=== PATIENT | female | born 1945 | race Caucasian/White ===

== ENCOUNTER → 2023-03-08 | Outpatient (CLI) | payer OTHER, MEDICARE, SELFPAY ==
[2023-03-08 18:03] LABS: Absolute Neutrophil Count 4.3 X10^3/uL (2.0-7.7); Basophil# 0.06 X10^3/uL; Basophil% 0.8 % (0-1); Eosinophil# 0.14 X10^3/uL; Eosinophils% 1.9 % (0-5); Hematocrit 44.6 % (37-47); Hemoglobin 14.7 g/dL (12.0-15.0); Lymphocyte % 33.1 % (19-41); Mean Corpuscular Hgb 30.4 pg (27.0-32.0); Mean Corpuscular Volume 92.1 fL (81-99); Mean Platelet Vol. 10.6 fl (6.2-12.0); Monocyte# 0.51 X10^3/uL; Monocyte% 6.8 % (0-10); NRBC Flagged by Analyzer 0 % (0-5); Neutrophil # 4.32 X10^3/uL (2.7-7.7); Neutrophil % 57.1 % (47-70); Platelet Count 246 K/mm3 (150-450); RBC Distribution Width CV 12.4 % (11.6-14.6); Red Blood Count 4.84 M/mm3 (4.2-5.4); White Blood Count 7.6 K/mm3 (4.4-11.0)
[2023-03-08 19:07] LABS: Hepatitis C Antibody Non-Reactive (Nonreactive); Vitamin B12 > 2000 pg/mL (211-911)
[2023-03-08 19:32] LABS: ALB/GLOB Ratio 0.9 RATIO (0.9-2.4); AST(SGOT) 29 U/L (15-37); Alanine Aminotransfer ALT/SGPT 38 U/L (13-56); Albumin, Serum 3.6 g/dL (3.2-5.0); Alkaline Phosphatase 106 U/L (45-117); Anion Gap 8 (5-15); BUN 18 mg/dL (7-18); BUN/Creat Ratio 26.4 RATIO (10-20); Calcium,Total 8.8 mg/dL (8.5-10.1); Chloride 107 mmol/L (98-107); Creatinine, Serum 0.68 mg/dL (0.55-1.02); EST Glomerular Filtration Rate 89 mL/min (>60); Est Glom Filt Rate - Afr Amer 108 mL/min (>60); Globulin 3.8 g/dL (2.2-4.2); Glucose 120 mg/dL (74-106); Potassium 3.9 mmol/L (3.5-5.1); Protein, Total 7.4 g/dL (6.4-8.2); Sodium Level 138 mmol/L (136-145); Thyroid Stim Hormone (TSH) 5.53 uIU/mL (0.358-3.74)
== END | disposition home or self-care (01) ==
LOC: POLAB3 17:21
PROVIDERS: PCP Family Medicine Geriatric Medicine; Referring Provider Family Medicine Geriatric Medicine; Visit Provider Family Medicine Geriatric Medicine
DX: E11.65 Type 2 diabetes mellitus with hyperglycemia (principal); G30.9 Alzheimer's disease, unspecified
CPT/HCPCS: 36415; 80053; 82607; 82746; 84443; 85025; 86780; 86803

== ENCOUNTER → 2023-04-19 | Outpatient (CLI) | payer MEDICARE, SELFPAY ==
--- NOTE | 2023-04-19 13:25 | CT_ITS ---
INDICATION: ALZHEIMERS DIESASE EXAMINATION: CT BRAIN - CT Head or Brain W/O Contrast Injection TECHNIQUE: Multiple axial images were obtained of the head without intravenous contrast. A radiation dose optimization technique was used for this scan. IV Contrast dosage and agent: None. RADIATION DOSAGE (If Supplied By Facility): CTDIvol = ( 44.99 ) mGy, DLP = ( 779.24 ) mGycm COMPARISON: No relevant prior examinations for comparison FINDINGS: HEMISPHERES: 1. The cerebral parenchyma, ventricular system, subarachnoid spaces have normal configuration and density. There is a normal gyral pattern. There is normal lópez/white differentiation. No midline shift.. 2. Mild involutional change. Minimal chronic microvascular deep white matter changes. 3. No intraparenchymal mass, hemorrhage, or acute territorial infarct. CEREBELLUM - BRAINSTEM: The cerebellum, brainstem, basilar and suprasellar cisterns have normal appearance. No Chiari malformation. PITUITARY: Partial empty sella noted, no sellar or suprasellar masses.. CSF SPACES: Appropriate for age. No hydrocephalus. Basal cisterns are patent. VESSELS: 1. Moderate carotid vascular calcifications bilaterally. 2. No hyperdense vascular signs noted.. ORBITS AND PARANASAL SINUSES: 1. Normal appearance of the bony orbits. Normal appearance of the globes and retrobulbar soft tissues.. 2. Paranasal sinuses are clear. BONY ELEMENTS: Bony elements of the cranial vault, facial skeleton and skull base have normal appearance. SCALP AND SOFT TISSUES: Normal appearance of the soft tissues of the scalp and the visualized face OTHER: None ASPECTS Score for Acute Strokes: 10 CT/Brain/Head without Contrast IMPRESSION: 1. Mild involutional changes and minimal chronic microvascular deep white matter disease. 2. No mass, hemorrhage, or acute territorial infarct. 3. No radiographically significant sinus disease. 4. Incidental note of partial empty sella without sellar or suprasellar masses. Electronically Signed: Jitendra Ferrara MD at 2:32 EDT ,
== END | disposition home or self-care (01) ==
LOC: CT 13:18
PROVIDERS: PCP Family Medicine Geriatric Medicine; Referring Provider Family Medicine Geriatric Medicine; Visit Provider Family Medicine Geriatric Medicine
DX: G30.9 Alzheimer's disease, unspecified (principal); Z12.2 Encounter for screening for malignant neoplasm of respiratory organs
CPT/HCPCS: 70450

== ENCOUNTER → 2023-04-23 | Outpatient (CLI) | payer MEDICARE, SELFPAY ==
[2023-04-23 13:53] LABS: Thyroid Stim Hormone (TSH) 4.91 uIU/mL (0.358-3.74)
== END | disposition home or self-care (01) ==
PROVIDERS: PCP Family Medicine Geriatric Medicine; Referring Provider Family Medicine Geriatric Medicine; Visit Provider Family Medicine Geriatric Medicine
DX: E03.9 Hypothyroidism, unspecified (principal)
CPT/HCPCS: 36415; 84443

== ENCOUNTER → 2023-09-17 | Outpatient (CLI) | payer MEDICARE, SELFPAY ==
[2023-09-17 11:26] LABS: Basophil# 0.06 X10^3/uL; Basophil% 0.7 % (0-1); Eosinophil# 0.19 X10^3/uL; Eosinophils% 2.1 % (0-5); Hematocrit 44.9 % (37-47); Hemoglobin 14.5 g/dL (12.0-15.0); Mean Corp Hgb Conc 32.3 g/dL (32-36); Mean Corpuscular Hgb 29.9 pg (27.0-32.0); Mean Corpuscular Volume 92.6 fL (81-99); Mean Platelet Vol. 10.7 fl (6.2-12.0); Monocyte# 0.57 X10^3/uL; Monocyte% 6.2 % (0-10); NRBC Flagged by Analyzer 0 % (0-5); Neutrophil # 4.96 X10^3/uL (2.7-7.7); Neutrophil % 53.8 % (47-70); Platelet Count 275 K/mm3 (150-450); RBC Distribution Width CV 12.5 % (11.6-14.6); RBC Distribution Width SD 42.5 fl (35.1-43.9); Red Blood Count 4.85 M/mm3 (4.2-5.4); White Blood Count 9.2 K/mm3 (4.4-11.0)
[2023-09-17 11:40] LABS: Vitamin D,25 Hydroxy 52.6 ng/mL
[2023-09-17 12:35] LABS: AST(SGOT) 16 U/L (15-37); Alanine Aminotransfer ALT/SGPT 22 U/L (13-56); Albumin, Serum 3.7 g/dL (3.2-5.0); Alkaline Phosphatase 91 U/L (45-117); Anion Gap 6 (5-15); BUN 18 mg/dL (7-18); BUN/Creat Ratio 19.6 RATIO (10-20); Calcium,Total 8.6 mg/dL (8.5-10.1); Chloride 104 mmol/L (98-107); Creatinine, Serum 0.92 mg/dL (0.55-1.02); EST Glomerular Filtration Rate 63 mL/min (>60); Est Glom Filt Rate - Afr Amer 77 mL/min (>60); Follicle Stimulating Hormone 57.8 mIU/mL; Free T3 2.3 pg/mL (2.18-3.98); Globulin 3.8 g/dL (2.2-4.2); Glucose 111 mg/dL (74-106); Luteinizing Hormone 22.2 mIU/mL; Potassium 3.9 mmol/L (3.5-5.1); Prolactin 6.7 ng/mL; Protein, Total 7.5 g/dL (6.4-8.2); Sodium Level 137 mmol/L (136-145); T4 Free Direct 1.06 ng/dL (0.76-1.46); Thyroid Stim Hormone (TSH) 4.42 uIU/mL (0.358-3.74)
== END | disposition home or self-care (01) ==
LOC: POLAB3 10:06
PROVIDERS: Internal Medicine Endocrinology, Diabetes & Metabolism; PCP Family Medicine Geriatric Medicine; Visit Provider Family Medicine Geriatric Medicine
DX: E11.65 Type 2 diabetes mellitus with hyperglycemia (principal); R53.83 Other fatigue; E55.9 Vitamin D deficiency, unspecified
CPT/HCPCS: 36415; 80053; 82306; 82533; 83001; 83002; 84146; 84439; 84443; 84481; 85025

== ENCOUNTER → 2023-12-10 | Outpatient (CLI) | payer MEDICARE, SELFPAY ==
--- OUTSIDE RECORDS SUMMARY | 2023-12-10 11:12 | XMS RPT_ITS | CCD ---
Author Name Unknown Address [address] [facility] [facility] [address] [facility] [address] [address] [place] [address] Organization [facility] Care Team Providers Care Italian Teacher Name Role Phone ALISSON MAXWELL DO Primary Care Physician ALISSON MAXWELL DO Attending Unavailable ALISSON MAXWELL DO Primary Care Unavailable ASTER HICKS, DR RINCON Attending Unavailable ALISSON MAXWELL DO Primary Care Unavailable Allergies Allergy Classification Reported Allergen(s) Allergy Type Date of Onset Reaction(s) Facility (5 sources) Bee/Wasp/Ant venom Allergy to substance Swelling (morphologic abnormality) [facility] Work Phone: Medications Current Medications Medication Drug Class(es) Dates Sig (Normalized) Sig (Original) acetaminophen 500 mg / diphenhydrAMINE hydrochloride 25 mg oral tablet (4 sources) Histamine-1 Receptor Antagonist Start: 03-16-2019 take 1 tablet by mouth once daily at bedtime as needed for pain Tylenol PM Extra Strength oral tablet Dose = 2 tab(s), Oral, qHS, PRN as needed for pain, # 20 tab(s), 0 Refill(s) Start Date: 03/16/19 Status: Ordered aspirin 81 mg delayed release oral tablet (5 sources) Platelet Aggregation Inhibitor, Nonsteroidal Anti-inflammatory Drug Start: 03-16-2019 aspirin 81 mg oral delayed release tablet Dose : 81 mg = 1 tab(s), Oral, Daily, 0 Refill(s) Start Date: 03/16/19 Status: Ordered Problems Problem Classification Problem Date Documented Date Episodic/Chronic Diabetes mellitus without complication (7 sources) Type 2 diabetes mellitus; Translations: [Type 2 diabetes mellitus without complications] Onset: 06-26-2022 03-27-2020 Chronic Disorders of lipid metabolism (7 sources) Mixed hyperlipidemia; Translations: [Mixed hyperlipidemia] Onset: 06-26-2022 03-27-2020 Chronic Fracture of upper limb (2 sources) Closed fracture of carpal bone; Translations: [Fracture of unspecified carpal bone, unspecified wrist, initial encounter for closed fracture] Onset: 02-17-2022 Episodic Malaise and fatigue (5 sources) Fatigue 03-16-2019 Episodic Other screening for suspected conditions (not mental disorders or infectious disease) (5 sources) Viral screening status 09-10-2021 Episodic Residual codes; unclassified (5 sources) Needs influenza immunization 07-29-2020 Episodic Residual codes; unclassified (5 sources) Postmenopausal state 06-10-2021 Episodic Unclassified (11 sources) Patient encounter status 06-10-2021 Results Test Name Value Interpretation Reference Range Facil ity Vital Signs Date Time Vital Sign Value Performing Clinician Faci lity 02-17-2022 16:14-0400 Reason For Taking VItal Signs DR AMY TORRES MD [facility] 02-17-2022 14:34-0400 Body temperature 98.6 [degF] DR AMY TORRES MD [facility] 02-17-2022 14:34-0400 Diastolic blood pressure 93 mm[Hg] DR AMY TORRES MD [facility] 02-17-2022 14:34-0400 Heart rate 108 /min DR AMY TORRES MD [facility] 02-17-2022 14:34-0400 Respiratory rate 20 /min DR AMY TORRES MD [facility] 02-17-2022 14:34-0400 Systolic blood pressure 170 mm[Hg] DR AMY TORRES MD [facility] Encounters Encounter Date Encounter Type Care Provider Facility Start: 03-10-2023 End: 03-11-[address] MCKENZIE RODARTE MD Facility:B Start: 03-10-2023 End: 03-10-[address] MCKENZIE RODARTE MD [facility] Start: 06-26-2022 End: 07-01-2022 ambulatory ALISSON MAXWELL DO Facility:A Start: 03-19-2022 End: 09-08-2022 Physical therapy management NORRIS GUTIERREZ DO [facility] Start: 02-23-2022 End: 02-23-2022 Patient encounter procedure VITOR CLARK PA-C [facility] Start: 02-17-2022 End: 02-17-2022 Emergency department patient visit DR AMY TORRES MD [facility] Start: 09-30-2021 End: 09-30-2021 Patient encounter procedure ALISSON MAXWELL DO [facility] Immunizations Immunization Date Immunization Notes Care Provider Fa cili 09-10-2021 influenza, high dose seasonal, preservative-free; Translations: [Afluria PF Quadrivalent ] ALISSON MAXWELL DO [facility] 01-29-2021 SARS-CoV-2 (COVID-19 ) mRNA-1273 vaccine ALISSON MAXWELL DO [facility] 01-02-2021 SARS-CoV-2 (COVID-19 ) mRNA-1273 vaccine ALISSON MAXWELL DO [facility] Payers Date Payer Category Payer Private Health Insurance [id number] 1945 Unknown [id number] 1945 Unknown [id number] Social History Date Type Detail Facility Start: 07-24-2019 Never smoked t obacco (finding) [facility] Sex Assigned At [facility] Medical Equipment Procedure Code Equipment Code Equipment Origin al Text Equipment Identifier Dates Easy Touch Test Strip Start: 05-17-2020 See Instructions , EZ touch test strips. Use 1 strip daily. #50, # 1 packet(s), 11 Refill(s), Pharmacy: [facility], Diabetes, 157, cm, 09/10/21 8:37:00 EST, Height, 85.45, kg, 09/10/21 8:37:00 EST, Dosing Weight Start: 12-09-2021 Easy Touch Test Strip, See Instructions, test ONCE DAILY DIRECTED, # 50 strip, 11 Refill(s), Pharmacy: [facility], 167, cm, 03/27/20 7:51:00 EDT, Height, 84.4, kg, 03/27/20 7:51:00 EDT, Dosing Weight Start: 05-17-2020 See Instructions , EZ touch test strips. Use 1 strip daily. #50, # 1 packet(s), 11 Refill(s), Pharmacy: [facility], Diabetes, 157, cm, 09/10/21 8:37:00 EST, Height, 85.45, kg, 09/10/21 8:37:00 EST, Dosing Weight Start: 12-09-2021 Easy Touch Test Strip, See Instructions, test ONCE DAILY DIRECTED, # 50 strip, 11 Refill(s), Pharmacy: [facility], 167, cm, 03/27/20 7:51:00 EDT, Height, 84.4, kg, 03/27/20 7:51:00 EDT, Dosing Weight Start: 05-17-2020 See Instructions , EZ touch test strips. Use 1 strip daily. #50, # 1 packet(s), 11 Refill(s), Pharmacy: [facility], Diabetes, 157, cm, 09/10/21 8:37:00 EST, Height, 85.45, kg, 09/10/21 8:37:00 EST, Dosing Weight Start: 12-09-2021 Easy Touch Test Strip, See Instructions, test ONCE DAILY DIRECTED, # 50 strip, 11 Refill(s), Pharmacy: [facility], 167, cm, 03/27/20 7:51:00 EDT, Height, 84.4, kg, 03/27/20 7:51:00 EDT, Dosing Weight Start: 05-17-2020 See Instructions , EZ touch test strips. Use 1 strip daily. #50, # 1 packet(s), 11 Refill(s), Pharmacy: [facility], Diabetes, 157, cm, 09/10/21 8:37:00 EST, Height, 85.45, kg, 09/10/21 8:37:00 EST, Dosing Weight Start: 12-09-2021 Easy Touch Test Strip, See Instructions, test ONCE DAILY DIRECTED, # 50 strip, 11 Refill(s), Pharmacy: [facility], 167, cm, 03/27/20 7:51:00 EDT, Height, 84.4, kg, 03/27/20 7:51:00 EDT, Dosing Weight Start: 05-17-2020 Functional Status Date Assessment Result Facility 02-17-2022 Functional Status Radha Henry ngo [facility] Mental Status Date Assessment Result Facility 02-17-2022 Mental Status [facility] 02-17-2022 [facility]-17-2022 to 03-10-2023 Radiology Note Date & Type Note Facility 03-10-2023 Note ORIGINAL EXAMINATION: BONE DENSITOMETRY5/08/2023 3:08 pm TECHNIQUE: Dual energy bone densitometry lumbar spine and left hip. COMPARISON: Bone density DEXA 09/30/2021. HISTORY: Reason for Exam: Asymptomatic menopausal state. FINDINGS: Total bone mineral density of the L1-L4 is 1.367 grams per square centimeters, and T-score being 2.9, indicating that this patient has normal bone mineral density. BMD change: +3.4%. Bone mineral density of the left femoral neck is 0.690 grams per square centimeters, and T-score being -1.4, indicating that this patient has osteopenia. Total bone mineral density of the left hip is 0.897 grams per square centimeters, and T-score being -0.4, indicating that this patient has normal bone mineral density. BMD change: -1.8%. FRAX score: 10 year risk major osteoporotic fracture 15 %. 10 year risk hip fracture 2.8 %. IMPRESSION: Osteopenia. I have personally reviewed the images of this examination and agree with the resident's findings and interpretation. Interpreted by: Brian Rodriguez MD Preliminary Report By: Prabhu Campbell Electronically signed By Brian Rodriguez MD Dictated Date: 03/10/2023 3:13:18 PM Prelim Date: 03/10/2023 3:37:41 PM Sign Date: 03/10/2023 3:37:41 PM Ordering Provider: [facility] 03-10-2023 Note ORIGINAL EXAMINATION: BONE DENSITOMETRY03/10/2023 3:08 pm TECHNIQUE: Dual energy bone densitometry lumbar spine and left hip. COMPARISON: Bone density DEXA 09/30/2021. HISTORY: Reason for Exam: Asymptomatic menopausal state. FINDINGS: Total bone mineral density of the L1-L4 is 1.367 grams per square centimeters, and T-score being 2.9, indicating that this patient has normal bone mineral density. BMD change: +3.4%. Bone mineral density of the left femoral neck is 0.690 grams per square centimeters, and T-score being -1.4, indicating that this patient has osteopenia. Total bone mineral density of the left hip is 0.897 grams per square centimeters, and T-score being -0.4, indicating that this patient has normal bone mineral density. BMD change: -1.8%. FRAX score: 10 year risk major osteoporotic fracture 15 %. 10 year risk hip fracture 2.8 %. IMPRESSION: Osteopenia. I have personally reviewed the images of this examination and agree with the resident's findings and interpretation. Interpreted by: Brian Rodriguez MD Preliminary Report By: Prabhu Campbell Electronically signed By Brian Rodriguez MD Dictated Date: 03/10/2023 3:13:18 PM Prelim Date: 03/10/2023 3:37:41 PM Sign Date: 03/10/2023 3:37:41 PM Ordering Provider: [facility] 02-17-2022 Hospital Discharg e instructions Patient Education 02/17/2022 15:41:58 Fracture, Wrist, General Wrist Fracture, General You have a broken bone (fracture) in your wrist. This may be a small crack or chip in the bone. Or it may be a major break, with the broken parts pushed out of position. Wrist fractures are often treated with a splint or cast. They take about 4 to 6 weeks to heal. Severe injuries may need surgery. Home care Follow these guidelines when caring for yourself at home: Keep your arm elevated to reduce pain and swelling. When sitting or lying down keep your arm above the level of your heart. You can do this by placing your arm on a pillow that rests on your chest or on a pillow at your side. This is most important during the first 2 days (48 hours) after the injury. Put an ice pack on the injured area. Do this for 20 minutes every 1 to 2 hours the first day for pain relief. You can make an ice pack by wrapping a plastic bag of ice cubes in a thin towel. As the ice melts, be careful that the cast or splint doesn t get wet. Continue using the ice pack 3 to 4 times a day for the next 2 days. Then use the ice pack as needed to ease pain and swelling. Keep the cast or splint completely dry at all times. Bathe with your cast or splint out of the water. Protect it with a large plastic bag, rubber-banded or taped at the top end. If a fiberglass cast or splint gets wet, you can dry it with a hair designer on a cool setting. You may use acetaminophen or ibuprofen to control pain, unless another pain medicine was prescribed. If you have chronic liver or kidney disease, talk with your healthcare provider before using these medicines. Also talk with your provider if you ve had a stomach ulcer or gastrointestinal bleeding. Don t put creams, lotions, or objects under the cast. Follow-up care Follow up with your healthcare provider as advised. This is to make sure the bone is healing the way it should. If a splint was put on, it may be changed to a cast during your follow-up visit. A cast may need to be changed at 2 to 3 weeks, as the swelling goes down. If X-rays were taken, a radiologist may look at them. You will be told of any new findings that may affect your care. When to seek medical advice Call your healthcare provider right away if any of these occur: The plaster cast or splint becomes wet or soft The cast or splint cracks Bad odor from the cast or wound fluid stains the cast The fiberglass cast or splint stays wet for more than 24 hours Tightness or pain under the cast or splint gets worse Fingers become swollen, cold, blue, numb, or tingly You can t move your fingers Skin around cast becomes red, swollen, or irritated [id number] [employer]. [address] [place] [address]. All rights reserved. This information is not intended as a substitute for professional medical care. Always follow your healthcare professional's instructions. Follow Up Care 02/17/2022 14:24:34 With:VARGHESE CURTIS MD Address: [address] [place] [address] [place] [facility] [place] [address] [phone] When:2-4 days [facility] Evaluation + Plan note Future Appointments Appointment Date:12/15/2021 09:00:00 AM Scheduled Provider:ALISSON MAXWELL DO Location:[facility] Appointment Type:PC OV Future Scheduled TestsBD Bone Density DEXA Axial Skeleton 06/10/21 [facility] Evaluation + Plan note Future Appointments Appointment Date:03/19/2022 08:30:00 AM Scheduled Provider:ALISSON MAXWELL DO Location:[facility] Appointment Type:PC OV [facility] Evaluation + Plan note Future Appointments Appointment Date:03/19/2022 08:30:00 AM Scheduled Provider:ALISSON MAXWELL DO Location:[facility] Appointment Type:PC OV Diagnostic Tests PendingComplete Blood Count 02/23/22.Auto Differential 02/23/22.Neutro Absolute 02/23/22 [facility] Evaluation + Plan note Future Appointments Appointment Date:10/02/2022 08:30:00 AM Scheduled Provider:ALISSON MAXWELL DO Location:[facility] Appointment Type:PC Wellness Medicare [facility] Evaluation + Plan note Future Appointments Appointment Date:04/02/2023 08:00:00 AM Scheduled Provider:ALISSON MAXWELL DO Location:[facility] Appointment Type:PC OV [facility] Hospital course Narrative No data available for this section [facility] Hospital Discharge instructions No data available for this section [facility] Progress note No data available for this section [facility] Summary Purpose Family History No Family History Records Found Advance Directives No Advanced Directives Records Found Additional Source Comments Care Team (unrecognized sect ion and content) Personnel Name: ALISSON MAXWELL DO Address: [address] [place] [address] Personnel Name: ALISSON MAXWELL DO Address: [address] [place] [address] Care Team Personnel Name: ALISSON MAXWELL DO Position: P4 Physician - Primary Care Member Role: Primary Care Physician Address: Address: [address] [place] [address] Care Team Related Persons Name: MADELAINE YANEZ Care Team (unrecognized sect ion and content) Care Team Personnel Name: ALISSON MAXWELL Position: P4 Physician - Primary Care Member Role: Primary Care Physician Address: Address: [address] [place] [id number] Care Team Related Persons Name: MADELAINE YANEZ INFORMATION SOURCE (unrecogn ized section and content) FOR RECORDS PERTAINING TO PATIENTS WHO ARE OR HAVE BEEN ENROLLED IN A CHEMICAL DEPENDENCY/SUBSTANCEABUSE PROGRAM, SOME INFORMATION MAY BE OMITTED. This clinical summary was aggregated from multiple sources. Caution should be exercised in using it in the provision of clinical care. This summary normalizes information from multiple sources, and as a consequence, information in this document may materially change the coding, format and clinical context of patient data. In addition, data may be omitted in some cases. CLINICAL DECISIONS SHOULD BE BASED ON THE PRIMARY CLINICAL RECORDS. [facility] [employer] [facility]. provides no warranty or guarantee of the accuracy or completeness of information in this document.
[2023-12-10 11:49] LABS: Absolute Lymphocyte Count 3.21 X10^3/uL (0.83-4.51); Basophil# 0.07 X10^3/uL; Basophil% 0.8 % (0-1); Eosinophil# 0.21 X10^3/uL; Eosinophils% 2.3 % (0-5); Hematocrit 44.9 % (37-47); Hemoglobin 14.7 g/dL (12.0-15.0); Lymphocyte # 3.21 X10^3/ul (0.83-4.51); Lymphocyte % 35.4 % (19-41); Mean Corp Hgb Conc 32.7 g/dL (32-36); Mean Corpuscular Hgb 30.1 pg (27.0-32.0); Mean Platelet Vol. 10.6 fl (6.2-12.0); Monocyte# 0.53 X10^3/uL; Monocyte% 5.8 % (0-10); NRBC Flagged by Analyzer 0 % (0-5); Neutrophil # 5.02 X10^3/uL (2.7-7.7); Neutrophil % 55.4 % (47-70); Platelet Count 261 K/mm3 (150-450); RBC Distribution Width CV 12.5 % (11.6-14.6); RBC Distribution Width SD 42.1 fl (35.1-43.9); Red Blood Count 4.88 M/mm3 (4.2-5.4); White Blood Count 9.1 K/mm3 (4.4-11.0)
[2023-12-10 12:14] LABS: AST(SGOT) 18 U/L (15-37); Alanine Aminotransfer ALT/SGPT 22 U/L (13-56); Albumin, Serum 3.7 g/dL (3.2-5.0); Alkaline Phosphatase 96 U/L (45-117); Anion Gap 5 (5-15); BUN 18 mg/dL (7-18); BUN/Creat Ratio 19.3 RATIO (10-20); Calcium,Total 9.1 mg/dL (8.5-10.1); Chloride 106 mmol/L (98-107); Creatinine, Serum 0.93 mg/dL (0.55-1.02); EST Glomerular Filtration Rate 62 mL/min (>60); Est Glom Filt Rate - Afr Amer 75 mL/min (>60); Globulin 3.7 g/dL (2.2-4.2); Glucose 127 mg/dL (74-106); Potassium 4.2 mmol/L (3.5-5.1); Protein, Total 7.4 g/dL (6.4-8.2); Sodium Level 140 mmol/L (136-145); Thyroid Stim Hormone (TSH) 3.58 uIU/mL (0.358-3.74)
[2023-12-10 14:39] LABS: Vitamin D,25 Hydroxy 32.5 ng/mL
== END | disposition home or self-care (01) ==
LOC: POLAB3 10:34
PROVIDERS: PCP Family Medicine Geriatric Medicine; Visit Provider Family Medicine Geriatric Medicine
DX: E11.65 Type 2 diabetes mellitus with hyperglycemia (principal); E55.9 Vitamin D deficiency, unspecified; R53.83 Other fatigue
CPT/HCPCS: 36415; 80053; 82306; 84443; 85025

== ENCOUNTER → 2024-04-26 | Outpatient (CLI) | payer MEDICARE, SELFPAY ==
[2024-04-26 13:29] LABS: Absolute Lymphocyte Count 3.47 X10^3/uL (0.83-4.51); Absolute Neutrophil Count 5.1 X10^3/uL (2.0-7.7); Basophil# 0.08 X10^3/uL; Basophil% 0.9 % (0-1); Eosinophil# 0.22 X10^3/uL; Eosinophils% 2.4 % (0-5); Hematocrit 46.1 % (37-47); Hemoglobin 15.1 g/dL (12.0-15.0); Lymphocyte # 3.47 X10^3/ul (0.83-4.51); Lymphocyte % 37.2 % (19-41); Mean Corp Hgb Conc 32.8 g/dL (32-36); Mean Corpuscular Volume 91.5 fL (81-99); Mean Platelet Vol. 10.3 fl (6.2-12.0); Monocyte# 0.46 X10^3/uL; Monocyte% 4.9 % (0-10); NRBC Flagged by Analyzer 0 % (0-5); Neutrophil # 5.08 X10^3/uL (2.7-7.7); Neutrophil % 54.3 % (47-70); Platelet Count 255 K/mm3 (150-450); RBC Distribution Width CV 12.1 % (11.6-14.6); RBC Distribution Width SD 40.7 fl (35.1-43.9); Red Blood Count 5.04 M/mm3 (4.2-5.4); White Blood Count 9.3 K/mm3 (4.4-11.0)
[2024-04-26 14:21] LABS: Vitamin D,25 Hydroxy 34.2 ng/mL
[2024-04-26 14:32] LABS: ALB/GLOB Ratio 1.1 RATIO (0.9-2.4); AST(SGOT) 17 U/L (15-37); Alanine Aminotransfer ALT/SGPT 17 U/L (13-56); Alkaline Phosphatase 84 U/L (45-117); Anion Gap 7 (5-15); BUN 14 mg/dL (7-18); BUN/Creat Ratio 17.7 RATIO (10-20); Calcium,Total 9.8 mg/dL (8.5-10.1); Chloride 105 mmol/L (98-107); Creatinine, Serum 0.79 mg/dL (0.55-1.02); EST Glomerular Filtration Rate 75 mL/min (>60); Est Glom Filt Rate - Afr Amer 91 mL/min (>60); Globulin 3.7 g/dL (2.2-4.2); Glucose 105 mg/dL (74-106); Potassium 4.4 mmol/L (3.5-5.1); Protein, Total 7.7 g/dL (6.4-8.2); Sodium Level 139 mmol/L (136-145)
== END | disposition home or self-care (01) ==
LOC: LAB 12:39
PROVIDERS: PCP Family Medicine Geriatric Medicine; Visit Provider Family Medicine Geriatric Medicine
DX: E11.65 Type 2 diabetes mellitus with hyperglycemia (principal); R53.83 Other fatigue; E55.9 Vitamin D deficiency, unspecified
CPT/HCPCS: 36415; 80053; 82306; 84443; 85025

== ENCOUNTER → 2024-10-17 | Outpatient (CLI) | payer MEDICARE, SELFPAY ==
[2024-10-17 13:10] LABS: Absolute Lymphocyte Count 3.33 X10^3/uL (0.83-4.51); Absolute Neutrophil Count 9.1 X10^3/uL (2.0-7.7); Basophil% 0.7 % (0-1); Eosinophil# 0.13 X10^3/uL; Hematocrit 46.7 % (37-47); Hemoglobin 15.6 g/dL (12.0-15.0); Lymphocyte # 3.33 X10^3/ul (0.83-4.51); Lymphocyte % 24.4 % (19-41); Mean Corp Hgb Conc 33.4 g/dL (32-36); Mean Corpuscular Hgb 30.6 pg (27.0-32.0); Mean Corpuscular Volume 91.6 fL (81-99); Mean Platelet Vol. 9.6 fl (6.2-12.0); Monocyte# 0.92 X10^3/uL; Monocyte% 6.7 % (0-10); NRBC Flagged by Analyzer 0 % (0-5); Neutrophil # 9.12 X10^3/uL (2.7-7.7); Neutrophil % 66.8 % (47-70); Platelet Count 280 K/mm3 (150-450); RBC Distribution Width CV 12.2 % (11.6-14.6); RBC Distribution Width SD 40.9 fl (35.1-43.9); White Blood Count 13.7 K/mm3 (4.4-11.0)
[2024-10-17 14:02] LABS: ALB/GLOB Ratio 0.9 RATIO (0.9-2.4); AST(SGOT) 17 U/L (15-37); Alanine Aminotransfer ALT/SGPT 21 U/L (13-56); Albumin, Serum 3.6 g/dL (3.2-5.0); Alkaline Phosphatase 126 U/L (45-117); Anion Gap 4 (5-15); BUN 16 mg/dL (7-18); BUN/Creat Ratio 16.5 RATIO (10-20); Calcium,Total 9.2 mg/dL (8.5-10.1); Chloride 104 mmol/L (98-107); Creatinine, Serum 0.97 mg/dL (0.55-1.02); EST Glomerular Filtration Rate 59 mL/min (>60); Est Glom Filt Rate - Afr Amer 72 mL/min (>60); Glucose 219 mg/dL (74-106); Potassium 4.9 mmol/L (3.5-5.1); Protein, Total 7.6 g/dL (6.4-8.2); Sodium Level 137 mmol/L (136-145)
[2024-10-19 07:58] LABS: Vitamin D,25 Hydroxy 29.2 ng/mL
== END | disposition home or self-care (01) ==
LOC: POLAB3 12:55
PROVIDERS: PCP Family Medicine Geriatric Medicine; Visit Provider Family Medicine Geriatric Medicine
DX: E11.65 Type 2 diabetes mellitus with hyperglycemia (principal); E55.9 Vitamin D deficiency, unspecified; R53.83 Other fatigue
CPT/HCPCS: 36415; 80053; 82306; 84443; 85025

== ENCOUNTER → 2025-04-27 | Outpatient (CLI) | payer MEDICARE, SELFPAY ==
[2025-04-27 13:12] LABS: Absolute Lymphocyte Count 2.99 X10^3/uL (0.83-4.51); Absolute Neutrophil Count 5.9 X10^3/uL (2.0-7.7); Basophil# 0.07 X10^3/uL; Basophil% 0.7 % (0-1); Eosinophil# 0.08 X10^3/uL; Eosinophils% 0.8 % (0-5); Hematocrit 44.3 % (37-47); Hemoglobin 14.9 g/dL (12.0-15.0); Lymphocyte # 2.99 X10^3/ul (0.83-4.51); Lymphocyte % 30.9 % (19-41); Mean Corp Hgb Conc 33.6 g/dL (32-36); Mean Corpuscular Hgb 31.3 pg (27.0-32.0); Mean Corpuscular Volume 93.1 fL (81-99); Monocyte# 0.57 X10^3/uL; Monocyte% 5.9 % (0-10); NRBC Flagged by Analyzer 0 % (0-5); Neutrophil # 5.94 X10^3/uL (2.7-7.7); Neutrophil % 61.3 % (47-70); Platelet Count 299 K/mm3 (150-450); RBC Distribution Width CV 12.4 % (11.6-14.6); RBC Distribution Width SD 42.9 fl (35.1-43.9); Red Blood Count 4.76 M/mm3 (4.2-5.4); White Blood Count 9.7 K/mm3 (4.4-11.0)
[2025-04-27 14:43] LABS: ALB/GLOB Ratio 1.5 RATIO (0.9-2.4); AST(SGOT) 21 U/L (<=31); Alanine Aminotransfer ALT/SGPT 14 U/L (<=34); Albumin, Serum 4.3 g/dL (3.4-4.8); Alkaline Phosphatase 95 U/L (35-104); Anion Gap 11 (5-15); BUN 11 mg/dL (4-19); BUN/Creat Ratio 12.4 RATIO (10-20); Calcium,Total 9.9 mg/dL (7.6-11.0); Carbon Dioxide 26.3 mmol/L (21.0-32.0); Chloride 100 mmol/L (98-108); EST Glomerular Filtration Rate 65 (>60); Globulin 2.8 g/dL (2.2-4.2); Glucose 153 mg/dL (70-99); Protein, Total 7.1 g/dL (5.9-8.4); Sodium Level 137 mmol/L (133-145); Total Bilirubin 0.62 mg/dL (0.00-1.30); Vitamin D,25 Hydroxy 42.8 ng/mL (30-100)
== END | disposition home or self-care (01) ==
LOC: LAB 12:21
PROVIDERS: PCP Family Medicine Geriatric Medicine; Referring Provider Family Medicine Geriatric Medicine; Visit Provider Family Medicine Geriatric Medicine
DX: E11.65 Type 2 diabetes mellitus with hyperglycemia (principal); E55.9 Vitamin D deficiency, unspecified; R53.83 Other fatigue
CPT/HCPCS: 36415; 80053; 82306; 84443; 85025

== ENCOUNTER → 2025-04-30 | Outpatient (CLI) | payer MEDICARE, SELFPAY ==
[2025-04-30 11:09] LABS: Microalbumin,Random Urine < 12.0 mg/L (NO RANGE EST.); Microalbumin:Creatinine Ratio UNABLE TO CALCULATE mg/g CRE
== END | disposition home or self-care (01) ==
LOC: LABSPEC 08:50
PROVIDERS: PCP Family Medicine Geriatric Medicine; Referring Provider Family Medicine Geriatric Medicine; Visit Provider Family Medicine Geriatric Medicine
DX: E11.65 Type 2 diabetes mellitus with hyperglycemia (principal)
CPT/HCPCS: 82043; 82570

== ENCOUNTER → 2025-10-16 | Outpatient (CLI) | payer MEDICARE, SELFPAY ==
[2025-10-16 15:26] LABS: Hematocrit 44.1 % (37-47); Hemoglobin 14.8 g/dL (12.0-15.0); Immature Granulocytes Count 0.030 X10^3/uL (0.0-0.0); Mean Corp Hgb Conc 33.6 g/dL (32-36); Mean Corpuscular Volume 92.5 fL (81-99); Mean Platelet Vol. 10.4 fl (6.2-12.0); NRBC Flagged by Analyzer 0 % (0-5); Platelet Count 258 K/mm3 (150-450); RBC Distribution Width CV 12.3 % (11.6-14.6); RBC Distribution Width SD 42.2 fl (35.1-43.9); Red Blood Count 4.77 M/mm3 (4.2-5.4); White Blood Count 8.9 K/mm3 (4.4-11.0)
[2025-10-16 16:26] LABS: Vitamin D,25 Hydroxy 36.7 ng/mL (30-100)
[2025-10-16 16:29] LABS: AST(SGOT) 30 U/L (<=31); Alanine Aminotransfer ALT/SGPT 23 U/L (<=34); Albumin, Serum 4.2 g/dL (3.4-4.8); Alkaline Phosphatase 126 U/L (35-104); Anion Gap 9 (5-15); BUN 15 mg/dL (4-19); BUN/Creat Ratio 14.0 RATIO (10-20); Calcium,Total 9.5 mg/dL (7.6-11.0); Carbon Dioxide 28.2 mmol/L (21.0-32.0); Chloride 102 mmol/L (98-108); Globulin 2.9 g/dL (2.2-4.2); Glucose 159 mg/dL (70-99); Potassium 4.0 mmol/L (3.3-5.1)
--- OUTSIDE RECORDS SUMMARY | 2025-10-16 20:22 | XMS RPT_ITS | CCD ---
Author Organization [facility] Care Team Providers [employer] Supervisor Name Role Phone ALISSON MAXWELL DO Primary Care Physician ALISSON MAXWELL DO Attending Unavailable ALISSON MAXWELL DO Primary Care Unavailable ASTER HICKS, DR RINCON Attending Unavailable ALISSON MAXWELL DO Primary Care Unavailable Aster HICKS, Dr. Mayito Sánchez Primary Care Provider Aster HICKS, Dr. Mayito Sánchez Attending Provider [phone] Aster HICKS, Dr. Mayito Sánchez Referring Provider [phone] Mayito Rodarte Chi Primary Care Unavailable Aster Mayito Chi Attending Unavailable Aster Mayito Chi Referring Unavailable Aster, Mayito Chi Primary Care Unavailable Aster Mayito Chi Attending Unavailable Aster Mayito Chi Primary Care Unavailable AsterMayito Chi Attending Unavailable Aster Mayito Chi Referring Unavailable Allergies Allergy Classification Reported Allergen(s) Allergy Type Date of Onset Reaction(s) Facility (5 sources) Bee/Wasp/Ant venom Allergy to substance Swelling (morphologic abnormality) [facility] Work Phone: Medications Current Medications Medication Drug [...] 0 Refill(s) Start Date: 03/16/19 Status: Ordered Start: 03-16-2019 aspirin 81 mg oral delayed release tablet Dose : 81 mg = 1 tab(s), Oral, Daily, 0 Refill(s) Start Date: 03/16/19 Status: Ordered atorvastatin 40 mg oral tablet (5 sources) HMG-CoA Reductase Inhibitor Start: 06-26-2022 End: 03-31-2023 atorvastatin 40 mg oral tablet Dose : 40 mg = 1 tab(s), Oral, qDay, # 90 tab(s), 1 Refill(s), Pharmacy: [facility], 157, cm, 10/02/22 8:25:00 EST, Height, kg, 10/02/22 8:25:00 EST, Dosing Weight Start Date: 10/02/22 Stop Date: 03/31/23 Status: Ordered Start: 09-10-2021 End: 03-09-2022 atorvastatin 40 mg oral tabl et Dose : 40 mg = 1 tab(s), Oral, qDay, # 90 tab(s), 1 Refill(s), Pharmacy: [facility], 157, cm, 09/10/21 8:37:00 EST, Height, kg, 09/10/21 8:37:00 EST, Dosing Weight Start Date: 09/10/21 Stop Date: 03/09/22 Status: Ordered Centrum Silver oral tablet (5 sources) Start: 03-16-2019 take 1 tablet by mouth once daily Centrum Silver oral tablet Dose = 1 tab(s), Oral, qDay, # 90 tab(s), 0 Refill(s) Start Date: 03/16/19 Status: Ordered cetirizine hydrochloride 10 mg oral tablet (4 sources) Histamine-1 Receptor Antagonist Start: 03-16-2019 Zyrtec 10 mg oral tablet Dose : 10 mg = 1 tab(s), Oral, qDay, # 30 tab(s), 0 Refill(s) Start Date: 03/16/19 Status: Ordered cinnamon bark 500 mg oral capsule (4 sources) Start: 03-16-2019 cinnamon 500 m g oral capsule Dose : 1,000 mg = 2 cap(s), Oral, BID, # 100 cap(s), 0 Refill(s) Start Date: 03/16/19 Status: Ordered DME MISCellaneous (1 source) Start: 06-10-2021 DME MISCellane ous See Instructions, EZ touch test strips. Use 1 strip daily. #50, # 1 packet(s), 11 Refill(s), Pharmacy: [facility], 157, cm, 06/10/21 8:45:00 EDT, Height, 85.9, kg, 06/10/21 8:45:00 EDT, Dosing Weight Start Date: 06/10/21 Status: Ordered galantamine 8 mg oral tablet (3 sources) Start: 08-13-2023 take 1 tablet by mouth once daily at dinner Galantamine 8 mg tablet Active 16 mg PO DAILY August 13, 2023 12:00am administer with AM and PM meals Start: 08-13-2023 take 16 mg by mouth once daily at dinner Galantamine Active 16 MG PO DAILY August 12, 2023 11:00pm administer with AM and PM meals glipiZIDE 5 mg oral tablet (5 sources) Sulfonylurea Start: 06-26-2022 End: 03-31-2023 glipiZIDE 5 mg oral tablet Dose : 5 mg = 1 tab(s), Oral, qDay, # 90 tab(s), 1 Refill(s), Pharmacy: [facility], 157, cm, 10/02/22 8:25:00 EST, Height, kg, 10/02/22 8:25:00 EST, Dosing Weight Start Date: 10/02/22 Stop Date: 03/31/23 Status: Ordered Start: 09-10-2021 End: 03-09-2022 glipiZIDE 5 mg oral tablet D ose : 5 mg = 1 tab(s), Oral, qDay, # 90 tab(s), 1 Refill(s), Pharmacy: [facility], 157, cm, 09/10/21 8:37:00 EST, Height, kg, 09/10/21 8:37:00 EST, Dosing Weight Start Date: 09/10/21 Stop Date: 03/09/22 Status: Ordered levothyroxine sodium 0.05 mg oral capsule (3 sources) l-Thyroxine Start: 08-13-2023 take 1 capsule by mouth once daily Levothyroxine 50 mcg capsule Active 50 ug PO DAILY August 13, 2023 12:00am memantine hydrochloride 10 mg oral tablet (3 sources) Z-rwmzun-T-asparta te Receptor Antagonist Start: 08-13-2023 take 1 tablet by mouth twice daily Memantine 10 mg tablet Active 10 mg PO TWICE A DAY August 13, 2023 12:00am naproxen sodium 220 mg oral tablet (5 sources) Nonsteroidal Anti-inflammatory Drug Start: 07-24-2019 Aleve 220 mg oral tablet Dose : 440 mg = 2 tab(s), Oral, q8h, PRN as needed for pain, # 60 tab(s), 0 Refill(s) Start Date: 07/24/19 Status: Ordered traMADol hydrochloride 50 mg oral tablet (1 source) Opioid Agonist Start: 02-17-2022 End: 02-20-2022 traMADol 50 mg oral tablet Dose : 50 mg = 1 tab(s), Oral, q6hr, X 3 day(s), # 12 tab(s), 0 Refill(s), 02/20/22 15:41:00 EDT, Wrist fracture, 86.81 Start Date: 02/17/22 Stop Date: 02/20/22 Status: Ordered turmeric extract 500 mg oral capsule (5 sources) Start: 03-16-2019 turmeric 500 mg oral capsule Dose : 500 mg = 1 cap(s), Oral, Daily, 0 Refill(s) Start Date: 03/16/19 Status: Ordered Tylenol PM Extra Strength oral tablet (1 source) Start: 03-16-2019 take 1 tablet by mouth once daily at bedtime as needed for pain Tylenol PM Extra Strength oral tablet Dose = 2 tab(s), Oral, qHS, PRN as needed for pain, # 20 tab(s), 0 Refill(s) Start Date: 03/16/19 Status: Ordered Vitamin B-12 1000 mcg sublingual lozenge (4 sources) Start: 03-16-2019 take 1 dose under the tongue once daily Vitamin B-12 1000 mcg sublingual lozenge Dose : 1,000 mcg = 1 lozenge(s), Sublingual, qDay, # 50 lozenge(s), 0 Refill(s) Start Date: 03/16/19 Status: Ordered vitamin b12 1 mg oral lozenge (1 source) Vitamin B12 Start: 03-16-2019 take 1 dose under the tongue once daily Vitamin B-12 1000 mcg sublingual lozenge Dose : 1,000 mcg = 1 lozenge(s), Sublingual, qDay, # 50 lozenge(s), 0 Refill(s) Start Date: 03/16/19 Status: Ordered Problems Problem Classification Problem Date Documented Date Episodic/Chronic Delirium, dementia, and amnestic and other cognitive disorders (3 sources) Dementia; Translations: [Unspecified dementia without behavioral disturbance] 08-13-2023 Chronic Diabetes mellitus with complications (1 source) Type 2 diabetes mellitus with hyperglycemia; Translations: [Type 2 diabetes mellitus with hyperglycemia] Onset: 05-02-2025 Chronic Diabetes mellitus without complication (10 sources) Type 2 diabetes mellitus; Translations: [Type [...] fatigue (5 sources) Fatigue 03-16-2019 Episodic Other endocrine disorders (3 sources) Empty sella syndrome; Translations: [Other disorders of pituitary gland] 08-13-2023 Chronic Other screening for suspected conditions (not mental disorders or infectious disease) (5 sources) Viral screening status 09-10-2021 Episodic Residual codes; unclassified (5 sources) Needs influenza immunization 07-29-2020 Episodic Residual codes; unclassified (5 sources) Postmenopausal state 06-10-2021 Episodic Thyroid disorders (3 sources) Acquired hypothyroidism; Translations: [Hypothyroidism, unspecified] 08-13-2023 Chronic Unclassified (11 sources) Patient encounter status 06-10-2021 Results Test Name Value Interpretation Reference Range Facility Microalb:Creat Ratio,Random URon 04-30-2025 Creatinine [Mass/Vol] 86.50 mg/dL Normal 28.00-217.00 [facility] Comment on above: Performed By: #### L 502.0250 #### [facility] [address] [place], [place], [id number] MALB:CREAT UNABLE TO CALCULATE Normal [facility] Comment on above: Performed By: #### L 502.0250 #### [facility] [address] [place], [place], [id number] MICROALBUMIN,UR < 12.0 Normal NO RANGE EST. [facility] Comment on above: Performed By: #### L 502.0250 #### [facility] [address] [place], [place], [id number] Microalbumin/creat ratio urO rdered By: Mayito Rodarte on 04-30-2025 Urine microalbumin/creatinine ratio measurement UNABLE TO CALCULATE mg/g CRE [facility] Random urine creatinine param urement (mass/volume)Ordered By: Mayito Rodarte on 04-30-2025 Creatinine Unsp time (U) [Mass/Vol] 86.50 mg/dL 28.00-217.00 [facility] Urine albumin measurement wi detection limit of 20 mg/L or less (mass/volume)Ordered By: Mayito Rodarte on 04-30-2025 Albumin DL <= 20 mg/L (U) [Mass/Vol] < 12.0 mg/L NO RANGE EST. [facility] Absolute lymphocyte countOrd ered By: Mayito Rodarte on 04-27-2025 Lymphocytes Auto (Unsp spec) [#/Vol] 2.99 10*3/uL 0.83-4.51 [facility] Absolute neutrophil countOrd ered By: Mayito Rodarte on 04-27-2025 Neutrophils (Bld) [#/Vol] 5.9 10*3/uL 2.0-7.7 [facility] Anion gap in Serum or Plasma Ordered By: Mayito Rodarte on 04-27-2025 Anion gap [Moles/Vol] 11 mmol/L 5-15 [facility] Automated lymphocyte count a s percentage of total leukocytesOrdered By: Mayito Rodarte on 04-27-2025 Lymphocytes/100 WBC Auto (Unsp spec) 30.9 % 19-41 [facility] BUN/creatinine ratioOrdered By: Mayito Rodarte on 04-27-2025 Urea nitrogen/Creatinine [Mass ratio] 12.4 mg/mg 10-20 [facility] Basophil percentageOrdered B y: Mayito Rodarte on 04-27-2025 Basophils/100 WBC (Bld) 0.7 % 0-1 [facility] Bilirubin, totalOrdered By: Mayito Rodarte on 04-27-2025 Bilirubin [Mass/Vol] 0.62 mg/dL 0.00-1.30 [facility] CBC W/Diff, Automatedon 04-02 Absolute Lymph 2.99 X10 3/uL Normal 0.83-4.51 [facility] Comment on above: Performed By: #### L 100.0100, L501.9520, L506.1001, L500.4050 #### [facility] [address] [place], [address] Absolute Neut 5.9 X10 3/uL Normal 2.0-7.7 [facility] Comment on above: Performed By: #### L 100.0100, L501.9520, L506.1001, L500.4050 #### [facility] [address] [place], [address] Basophils/100 WBC (Bld) 0.7 % Normal 0-1 [facility] Comment on above: Performed By: #### L 100.0100, L501.9520, L506.1001, L500.4050 #### [facility] [address] [place], [address] Eosinophils/100 WBC (Bld) 0.8 % Normal 0-5 [facility] Comment on above: Performed By: #### L 100.0100, L501.9520, L506.1001, L500.4050 #### [facility] [address] [place], [address] Erythrocyte distribution width (RBC) [Ratio] 12.4 % Normal 11.6-14.6 [facility] Comment on above: Performed By: #### L 100.0100, L501.9520, L506.1001, L500.4050 #### [facility] [address] [place], [address] Hematocrit (Bld) [Volume fraction] 44.3 % Normal 37-47 [facility] Comment on above: Performed By: #### L 100.0100, L501.9520, L506.1001, L500.4050 #### [facility] [address] [place], [address] Hemoglobin (Bld) [Mass/Vol] 14.9 g/dL Normal 12.0-15.0 [facility] Comment on above: Performed By: #### L 100.0100, L501.9520, L506.1001, L500.4050 #### [facility] [address] [place], [address] IG% 0.400 Normal 0.0-0.9 [facility] Comment on above: Result Comment: IG% - Immature Granulocytes (promyelocytes, myelocytes and metamyelocytes) > 1% indicates that a LEFT SHIFT is Present. Performed By: #### L 100.0100, L501.9520, L506.1001, L500.4050 #### [facility] [address] [place], [address] Lymphocytes/100 WBC (Bld) 30.9 % Normal 19-41 [facility] Comment on above: Performed By: #### L 100.0100, L501.9520, L506.1001, L500.4050 #### [facility] [address] [place], [address] MCH (RBC) [Entitic mass] 31.3 pg Normal 27.0-32.0 [facility] Comment on above: Performed By: #### L 100.0100, L501.9520, L506.1001, L500.4050 #### [facility] [address] [place], [address] MCHC (RBC) [Mass/Vol] 33.6 g/dL Normal 32-36 [facility] Comment on above: Performed By: #### L 100.0100, L501.9520, L506.1001, L500.4050 #### [facility] [address] [place], [address] MCV (RBC) [Entitic vol] 93.1 fL Normal 81-99 [facility] Comment on above: Performed By: #### L 100.0100, L501.9520, L506.1001, L500.4050 #### [facility] [address] [place], [address] Monocytes/100 WBC (Bld) 5.9 % Normal 0-10 [facility] Comment on above: Performed By: #### L 100.0100, L501.9520, L506.1001, L500.4050 #### [facility] [address] [place], [address] Neutrophils/100 WBC (Bld) 61.3 % Normal 47-70 [facility] Comment on above: Performed By: #### L 100.0100, L501.9520, L506.1001, L500.4050 #### [facility] [address] [place], [address] Nucleated RBC (Bld) [#/Vol] 0 10*3/uL Normal 0-5 [facility] Comment on above: Performed By: #### L 100.0100, L501.9520, L506.1001, L500.4050 #### [facility] [address] [place], [address] Platelet mean volume (Bld) [Entitic vol] 10.0 fL Normal 6.2-12.0 [facility] Comment on above: Performed By: #### L 100.0100, L501.9520, L506.1001, L500.4050 #### [facility] [address] [place], [address] Platelets (Bld) [#/Vol] 299 10*3/uL Normal 150-450 [facility] Comment on above: Performed By: #### L 100.0100, L501.9520, L506.1001, L500.4050 #### [facility] [address] [place], [address] RBC (Bld) [#/Vol] 4.76 10*6/uL Normal 4.2-5.4 [facility] Comment on above: Performed By: #### L 100.0100, L501.9520, L506.1001, L500.4050 #### [facility] [address] [place], [address] RDW SD 42.9 fl Normal 35.1-43.9 [facility] Comment on above: Performed By: #### L 100.0100, L501.9520, L506.1001, L500.4050 #### [facility] [address] [place], [address] WBC (Bld) [#/Vol] 9.7 10*3/uL Normal 4.4-11.0 [facility] Comment on above: Performed By: #### L 100.0100, L501.9520, L506.1001, L500.4050 #### [facility] [address] [place], [address] Carbon dioxide, total [Moles /volume] in Central venous bloodOrdered By: Mayito Rodarte on 04-27-2025 CO2 [Moles/Vol] 26.3 mmol/L 21.0-32.0 [facility] Chloride assayOrdered By: Gagandeep Rodarte on 04-27-2025 Chloride [Moles/Vol] 100 mmol/L 98-108 [facility] Comprehensive Metabolic Prof ilon 04-27-2025 Albumin [Mass/Vol] 4.3 g/dL Normal 3.4-4.8 [facility] Comment on above: Performed By: #### L 100.0100, L501.9520, L506.1001, L500.4050 #### [facility] [address] [place], [address] Albumin/Globulin [Mass ratio] 1.5 {ratio} Normal 0.9-2.4 [facility] Comment on above: Performed By: #### L 100.0100, L501.9520, L506.1001, L500.4050 #### [facility] [address] [place], [address] ALK PHOS 95 U/L Normal 35-104 [facility] Comment on above: Performed By: #### L 100.0100, L501.9520, L506.1001, L500.4050 #### [facility] [address] [place], [address] ALT [Catalytic activity/Vol] 14 U/L Normal <=34 [facility] Comment on above: Performed By: #### L 100.0100, L501.9520, L506.1001, L500.4050 #### [facility] [address] [place], [address] AST [Catalytic activity/Vol] 21 U/L Normal <=31 [facility] Comment on above: Performed By: #### L 100.0100, L501.9520, L506.1001, L500.4050 #### [facility] [address] [place], [address] Bilirubin [Mass/Vol] 0.62 mg/dL Normal 0.00-1.30 [facility] Comment on above: Performed By: #### L 100.0100, L501.9520, L506.1001, L500.4050 #### [facility] [address] [place], [address] BUN/CRE 12.4 RATIO Normal 10-20 [facility] Comment on above: Performed By: #### L 100.0100, L501.9520, L506.1001, L500.4050 #### [facility] [address] [place], [address] Calcium [Mass/Vol] 9.9 mg/dL Normal 7.6-11.0 [facility] Comment on above: Performed By: #### L 100.0100, L501.9520, L506.1001, L500.4050 #### [facility] [address] [place], [address] Chloride [Moles/Vol] 100 mmol/L Normal 98-108 [facility] Comment on above: Performed By: #### L 100.0100, L501.9520, L506.1001, L500.4050 #### [facility] [address] [place], [address] CO2 [Moles/Vol] 26.3 mmol/L Normal 21.0-32.0 [facility] Comment on above: Performed By: #### L 100.0100, L501.9520, L506.1001, L500.4050 #### [facility] [address] [place], [address] Creatinine [Mass/Vol] 0.90 mg/dL Normal 0.70-1.20 [facility] Comment on above: Performed By: #### L 100.0100, L501.9520, L506.1001, L500.4050 #### [facility] [address] [place], [address] GAP 11 Normal 5-15 [facility] Comment on above: Performed By: #### L 100.0100, L501.9520, L506.1001, L500.4050 #### [facility] [address] [place], [address] GFR/1.73 sq M.predicted among non-blacks MDRD (S/P/Bld) [Vol rate/Area] 65 mL/min/{1.73_m2} Normal >60 [facility] Comment on above: Result Comment: mL/m in/1.73m2 CKD-EPI Creatinine Equation (2020) Performed By: #### L 100.0100, L501.9520, L506.1001, L500.4050 #### [facility] [address] [place], [address] Globulin (S) [Mass/Vol] 2.8 g/dL Normal 2.2-4.2 [facility] Comment on above: Performed By: #### L 100.0100, L501.9520, L506.1001, L500.4050 #### [facility] [address] [place], [address] Glucose [Mass/Vol] 153 mg/dL High 70-99 [facility] Comment on above: Performed By: #### L 100.0100, L501.9520, L506.1001, L500.4050 #### [facility] [address] [place], [address] Potassium [Moles/Vol] 4.0 mmol/L Normal 3.3-5.1 [facility] Comment on above: Performed By: #### L 100.0100, L501.9520, L506.1001, L500.4050 #### [facility] [address] [place], [address] Sodium [Moles/Vol] 137 mmol/L Normal 133-145 [facility] Comment on above: Performed By: #### L 100.0100, L501.9520, L506.1001, L500.4050 #### [facility] [address] [place], [address] T PROT 7.1 g/dL Normal 5.9-8.4 [facility] Comment on above: Performed By: #### L 100.0100, L501.9520, L506.1001, L500.4050 #### [facility] [address] [place], [address] Urea nitrogen [Mass/Vol] 11 mg/dL Normal 4-19 [facility] Comment on above: Performed By: #### L 100.0100, L501.9520, L506.1001, L500.4050 #### [facility] [address] [place], [address] Eosinophil percentageOrdered By: Mayito Rodarte on 04-27-2025 Eosinophils/100 WBC (Bld) 0.8 % 0-5 [facility] Erythrocyte distribution wid th ratioOrdered By: Mayito Rodarte on 04-27-2025 Erythrocyte distribution width (RBC) [Ratio] 12.4 % 11.6-14.6 [facility] Erythrocyte distribution wid th standard deviationOrdered By: Mayito Rodarte on 04-27-2025 Erythrocyte distribution width (RBC) [Ratio] 42.9 fl 35.1-43.9 [facility] Glomerular filtration rate ( GFR) estimation/1.73 sq m using serum, plasma, or whole bOrdered By: Mayito Rodarte on 04-27-2025 GFR/1.73 sq M.predicted among non-blacks MDRD (S/P/Bld) [Vol rate/Area] 65 mL/min/{1.73_m2} >60 [facility] Comment on above: mL/min/1.73m2 CKD-EP I Creatinine Equation (2020) Hematocrit Auto (Bld) [Volum e fraction]Ordered By: Mayito Rodarte on 04-27-2025 Hematocrit (Bld) [Volume fraction] 44.3 % 37-47 [facility] Hemoglobin measurementOrdere d By: Mayito Rodarte 04-27-2025 Hemoglobin (Bld) [Mass/Vol] 14.9 g/dL 12.0-15.0 [facility] Immature granulocytes/100 WB C Auto (Bld)Ordered By: Mayito Rodarte on 04-27-2025 Immature granulocytes/100 WBC (Bld) 0.400 % 0.0-0.9 [facility] Comment on above: IG% - Immature Granu locytes (promyelocytes, myelocytes and metamyelocytes) > 1% indicates that a LEFT SHIFT is Present. Laboratory - Chemistry and C hemistry - challengeOrdered By: Mayito Rodarte on 04-27-2025 AST [Catalytic activity/Vol] 21 U/L <32 [facility] MCV (mean corpuscular volume ) determinationOrdered By: Mayito Rodarte on 04-27-2025 MCV (RBC) [Entitic vol] 93.1 fL 81-99 [facility] Mean corpuscular hemoglobin (MCH) determinationOrdered By: Mayito Rodarte 04-27-2025 MCH (RBC) [Entitic mass] 31.3 pg 27.0-32.0 [facility] Mean corpuscular hemoglobin concentration (MCHC) determinationOrdered By: Mayito Rodarte 04-27-2025 MCHC (RBC) [Mass/Vol] 33.6 g/dL 32-36 [facility] Mean platelet volume determi nationOrdered By: Mayito Rodarte 04-27-2025 Platelet mean volume (Bld) [Entitic vol] 10.0 fL 6.2-12.0 [facility] Monocyte percentageOrdered B y: Mayito Rodarte on 04-27-2025 Monocytes/100 WBC (Bld) 5.9 % 0-10 [facility] Neutrophil percentageOrdered By: Mayito Rodarte on 04-27-2025 Neutrophils/100 WBC (Bld) 61.3 % 47-70 [facility] Nucleated red blood cell per centageOrdered By: Mayito Rodarte 04-27-2025 Nucleated RBC/100 WBC (Bld) [Ratio] 0 % 0-5 [facility] Platelet countOrdered By: Gagandeep Rodarte on 04-27-2025 Platelets (Bld) [#/Vol] 299 10*3/uL 150-450 [facility] Potassium measurement (mass/ volume)Ordered By: Mayito Rodarte on 04-27-2025 Potassium (Unsp spec) [Mass/Vol] 4.0 mmol/L 3.3-5.1 [facility] RBC Auto (Bld) [#/Vol]Ordere d By: Mayito Rodarte on 04-27-2025 RBC (Bld) [#/Vol] 4.76 10*6/uL 4.2-5.4 [facility] Serum creatinine measurement (mass/volume)Ordered By: Mayito Rodarte 04-27-2025 Creatinine [Mass/Vol] 0.90 mg/dL 0.70-1.20 [facility] Serum globulin measurementOr dered By: Mayito Rodarte 04-27-2025 Globulin (S) [Mass/Vol] 2.8 g/dL 2.2-4.2 [facility] Serum glucose measurement (m ass/volume)Ordered By: Mayito Rodarte 04-27-2025 Glucose [Mass/Vol] 153 mg/dL High 70-99 [facility] Serum or plasma alanine chavez otransferase (ALT) measurementOrdered By: Mayito Rodarte 04-27-2025 ALT [Catalytic activity/Vol] 14 U/L <35 [facility] Serum or plasma albumin param urement (mass/volume)Ordered By: Mayito Rodarte 04-27-2025 Albumin [Mass/Vol] 4.3 g/dL 3.4-4.8 [facility] Serum or plasma albumin/glob ulin mass ratioOrdered By: Mayito Rodarte 04-27-2025 Albumin/Globulin [Mass ratio] 1.5 {ratio} 0.9-2.4 [facility] Serum or plasma alkaline cony sphatase measurementOrdered By: Mayito Rodarte 04-27-2025 ALP [Catalytic activity/Vol] 95 U/L 35-104 [facility] Serum or plasma calcium param urement (mass/volume)Ordered By: Mayito Rodarte 04-27-2025 Calcium [Mass/Vol] 9.9 mg/dL 7.6-11.0 [facility] Serum or plasma urea nitroge n measurement (mass/volume)Ordered By: Mayito Rodarte 04-27-2025 Urea nitrogen [Mass/Vol] 11 mg/dL 4-19 [facility] Sodium levelOrdered By: Mayito Rodarte 04-27-2025 Sodium [Moles/Vol] 137 mmol/L 133-145 [facility] TSH DL <= 0.005 mIU/L QnOrde red By: Mayito Rodarte on 04-27-2025 TSH Qn 1.590 uIU/mL 0.300-4.200 [facility] Thyroid Stim Hormone (TSH)on 04-27-2025 TSH 1.590 uIU/mL Normal 0.300-4.200 [facility] Comment on above: Performed By: #### L 100.0100, L501.9520, L506.1001, L500.4050 #### [facility] [address] [place], [address] Total proteinOrdered By: Mayito Rodarte on 04-27-2025 Protein [Mass/Vol] 7.1 g/dL 5.9-8.4 [facility] Vitamin D,25 Hydroxyon 04-27 Vitamin D 25-OH 42.8 ng/mL Normal 30-100 [facility] Comment on above: Result Comment: Kenia min D Status Deficiency: <20 ng/mL (50nmol/L) Insufficiency: 20-30 ng/mL (50-75 nmol/L) Sufficiency: 30-100 ng/mL (75-250 nmol/L) Toxicity: >100 ng/mL (>250 nmol/L) Performed By: #### L 100.0100, L501.9520, L506.1001, L500.4050 #### [facility] [address] [place], [address] White blood cell (WBC) count Ordered By: Mayito Rodarte on 04-27-2025 WBC (Bld) [#/Vol] 9.7 10*3/uL 4.4-11.0 [facility] Vitamin D,25 Hydroxyon 10-19 Vitamin D 25-OH 29.2 ng/mL Normal [facility] Comment on above: Result Comment: Kenia min D 25(OH) Status Range Deficiency <20 ng/mL (50nmol/L) Insufficiency 20 - 30 ng/mL (50 - 75 nmol/L) Sufficiency 30 - 100 ng/mL (75 - 250 nmol/L) Toxicity >100 ng/mL (>250 nmol/L) Performed By: #### L 500.4050, L501.9520, L506.1000, L100.0100 #### [facility] [address] [place], [address] CBC W/Diff, Automatedon 10-01 Absolute Lymph 3.33 X10 3/uL Normal 0.83-4.51 [facility] Comment on above: Performed By: #### L 500.4050, L501.9520, L506.1000, L100.0100 #### [facility] [address] [place], [address] Absolute Neut 9.1 X10 3/uL High 2.0-7.7 [facility] Comment on above: Performed By: #### L 500.4050, L501.9520, L506.1000, L100.0100 #### [facility] [address] [place], [address] Basophils/100 WBC (Bld) 0.7 % Normal 0-1 [facility] Comment on above: Performed By: #### L 500.4050, L501.9520, L506.1000, L100.0100 #### [facility] [address] [place], [address] Eosinophils/100 WBC (Bld) 1.0 % Normal 0-5 [facility] Comment on above: Performed By: #### L 500.4050, L501.9520, L506.1000, L100.0100 #### [facility] [address] [place], [address] Erythrocyte distribution width (RBC) [Ratio] 12.2 % Normal 11.6-14.6 [facility] Comment on above: Performed By: #### L 500.4050, L501.9520, L506.1000, L100.0100 #### [facility] [address] [place], [address] Hematocrit (Bld) [Volume fraction] 46.7 % Normal 37-47 [facility] Comment on above: Performed By: #### L 500.4050, L501.9520, L506.1000, L100.0100 #### [facility] [address] [place], [address] Hemoglobin (Bld) [Mass/Vol] 15.6 g/dL High 12.0-15.0 [facility] Comment on above: Performed By: #### L 500.4050, L501.9520, L506.1000, L100.0100 #### [facility] [address] [place], [address] IG% 0.400 Normal 0.0-0.9 [facility] Comment on above: Result Comment: IG% - Immature Granulocytes (promyelocytes, myelocytes and metamyelocytes) > 1% indicates that a LEFT SHIFT is Present. Performed By: #### L 500.4050, L501.9520, L506.1000, L100.0100 #### [facility] [address] [place], [address] Lymphocytes/100 WBC (Bld) 24.4 % Normal 19-41 [facility] Comment on above: Performed By: #### L 500.4050, L501.9520, L506.1000, L100.0100 #### [facility] [address] [place], [address] MCH (RBC) [Entitic mass] 30.6 pg Normal 27.0-32.0 [facility] Comment on above: Performed By: #### L 500.4050, L501.9520, L506.1000, L100.0100 #### [facility] [address] [place], [address] MCHC (RBC) [Mass/Vol] 33.4 g/dL Normal 32-36 [facility] Comment on above: Performed By: #### L 500.4050, L501.9520, L506.1000, L100.0100 #### [facility] [address] [place], [address] MCV (RBC) [Entitic vol] 91.6 fL Normal 81-99 [facility] Comment on above: Performed By: #### L 500.4050, [id number], L506.1000, L100.0100 #### [facility] [address] [place], [address] Monocytes/100 WBC (Bld) 6.7 % Normal 0-10 [facility] Comment on above: Performed By: #### L 500.4050, [id number], L506.1000, L100.0100 #### [facility] [address] [place], [address] Neutrophils/100 WBC (Bld) 66.8 % Normal 47-70 [facility] Comment on above: Performed By: #### L 500.4050, [id number], L506.1000, L100.0100 #### [facility] [address] [place], [address] Nucleated RBC (Bld) [#/Vol] 0 10*3/uL Normal 0-5 [facility] Comment on above: Performed By: #### L 500.4050, L501.9520, L506.1000, L100.0100 #### [facility] [address] [place], [address] Platelet mean volume (Bld) [Entitic vol] 9.6 fL Normal 6.2-12.0 [facility] Comment on above: Performed By: #### L 500.4050, L501.9520, L506.1000, L100.0100 #### [facility] [address] [place], [address] Platelets (Bld) [#/Vol] 280 10*3/uL Normal 150-450 [facility] Comment on above: Performed By: #### L 500.4050, L501.9520, L506.1000, L100.0100 #### [facility] [address] [place], [address] RBC (Bld) [#/Vol] 5.10 10*6/uL Normal 4.2-5.4 [facility] Comment on above: Performed By: #### L 500.4050, [id number], L506.1000, L100.0100 #### [facility] [address] [place], [address] RDW SD 40.9 fl Normal 35.1-43.9 [facility] Comment on above: Performed By: #### L 500.4050, [id number], L506.1000, L100.0100 #### [facility] [address] [place], [address] WBC (Bld) [#/Vol] 13.7 10*3/uL High 4.4-11.0 [facility] Comment on above: Performed By: #### L 500.4050, [id number], L506.1000, L100.0100 #### [facility] [address] [place], [address] [facility] 10-17-2024 Albumin [Mass/Vol] 3.6 g/dL Normal 3.2-5.0 [facility] Comment on above: Performed By: #### L 500.4050, [id number], L506.1000, L100.0100 #### [facility] [address] [place], [address] Albumin/Globulin [Mass ratio] 0.9 {ratio} Normal 0.9-2.4 [facility] Comment on above: Performed By: #### L 500.4050, [id number], L506.1000, L100.0100 #### [facility] [address] [place], [address] ALK P 126 U/L High 45-117 [facility] Comment on above: Performed By: #### L 500.4050, [id number], L506.1000, L100.0100 #### [facility] [address] [place], [address] ALT [Catalytic activity/Vol] 21 U/L Normal 13-56 [facility] Comment on above: Performed By: #### L 500.4050, [id number], L506.1000, L100.0100 #### [facility] [address] [place], [address] AST [Catalytic activity/Vol] 17 U/L Normal 15-37 [facility] Comment on above: Performed By: #### L 500.4050, [id number], L506.1000, L100.0100 #### [facility] [address] [place], [address] Bilirubin [Mass/Vol] 0.40 mg/dL Normal 0.20-1.00 [facility] Comment on above: Result Comment: For patients on eltrombopag therapy, use of Dimension Mertzon TBIL is not recommended. Performed By: #### L 500.4050, L501.9520, L506.1000, L100.0100 #### [facility] [address] [place], [address] BUN/CRE 16.5 RATIO Normal 10-20 [facility] Comment on above: Performed By: #### L 500.4050, [id number], L506.1000, L100.0100 #### [facility] [address] [place], [address] CA,Total 9.2 mg/dL Normal 8.5-10.1 [facility] Comment on above: Performed By: #### L 500.4050, [id number], L506.1000, L100.0100 #### [facility] [address] [place], [address] Chloride [Moles/Vol] 104 mmol/L Normal 98-107 [facility] Comment on above: Performed By: #### L 500.4050, [id number], L506.1000, L100.0100 #### [facility] [address] [place], [address] CO2 [Moles/Vol] 29.0 mmol/L Normal 21.0-32.0 [facility] Comment on above: Performed By: #### L 500.4050, [id number], L506.1000, L100.0100 #### [facility] [address] [place], [address] Creatinine [Mass/Vol] 0.97 mg/dL Normal 0.55-1.02 [facility] Comment on above: Result Comment: The validity of the calculated GFR GFRAA in patients over 70 years has not been determined. Clinical correlation is essential. Performed By: #### L 500.4050, L501.9520, L506.1000, L100.0100 #### [facility] [address] [place], [address] EST GFR - AA 72 mL/min Normal >60 [facility] Comment on above: Result Comment: Afri can Serbian GFR Calc Performed By: #### L 500.4050, [id number], L506.1000, L100.0100 #### [facility] [address] [place], [address] GAP 4 Low 5-15 [facility] Comment on above: Performed By: #### L 500.4050, [id number], L506.1000, L100.0100 #### [facility] [address] [place], [address] GFR/1.73 sq M.predicted among non-blacks MDRD (S/P/Bld) [Vol rate/Area] 59 mL/min/{1.73_m2} Low >60 [facility] Comment on above: Result Comment: Non- GFR Calc Performed By: #### L 500.4050, L501.9520, L506.1000, L100.0100 #### [facility] [address] [place], [address] Globulin (S) [Mass/Vol] 4.0 g/dL Normal 2.2-4.2 [facility] Comment on above: Performed By: #### L 500.4050, L501.9520, L506.1000, L100.0100 #### [facility] [address] [place], [address] Glucose [Mass/Vol] 219 mg/dL High 74-106 [facility] Comment on above: Result Comment: Gluc ose result greater than or equal to 200 mg/dL suggests DIABETES MELLITUS per A.D.A. criteria. Performed By: #### L 500.4050, L501.9520, L506.1000, L100.0100 #### [facility] [address] [place], [address] Potassium [Moles/Vol] 4.9 mmol/L Normal 3.5-5.1 [facility] Comment on above: Performed By: #### L 500.4050, [id number], L506.1000, L100.0100 #### [facility] [address] [place], [address] Sodium [Moles/Vol] 137 mmol/L Normal 136-145 [facility] Comment on above: Performed By: #### L 500.4050, [id number], L506.1000, L100.0100 #### [facility] [address] [place], [address] T PROT 7.6 g/dL Normal 6.4-8.2 [facility] Comment on above: Performed By: #### L 500.4050, [id number], L506.1000, L100.0100 #### [facility] [address] [place], [address] Urea nitrogen [Mass/Vol] 16 mg/dL Normal 7-18 [facility] Comment on above: Performed By: #### L 500.4050, [id number], L506.1000, L100.0100 #### [facility] [address] [place], [address] Thyroid Stim Hormone (TSH)on 10-17-2024 TSH 1.750 uIU/mL Normal 0.358-3.740 [facility] Comment on above: Performed By: #### L 500.4050, L501.9520, L506.1000, L100.0100 #### [facility] [address] [place], [address] Absolute lymphocyte countOrd ered By: Mayito Rodarte on 12-10-2023 Lymphocytes Auto (Unsp spec) [#/Vol] 3.21 10*3/uL 0.83-4.51 [facility] Automated lymphocyte count a s percentage of total leukocytesOrdered By: Mayito Rodarte on 12-10-2023 Lymphocytes/100 WBC Auto (Unsp spec) 35.4 % 19-41 [facility] Basophil percentageOrdered B y: Mayito Rodarte on 12-10-2023 Basophils/100 WBC (Bld) 0.8 % 0-1 [facility] Bilirubin [Mass/Vol] 0.50 mg/dL 0.20-1.00 [facility] Comment on above: For patients on eltr ombopag therapy, use of Dimension Mertzon TBIL is not recommended. Chloride [Moles/Vol] 106 mmol/L 98-107 [facility] Eosinophils/100 WBC (Bld) 2.3 % 0-5 [facility] Glucose [Mass/Vol] 127 mg/dL 74-106 [facility] Comment on above: Fasting Glucose resu lt greater than or equal to 126 mg/dL suggests DIABETES MELLITUS per A.D.A. criteria. Hemoglobin (Bld) [Mass/Vol] 14.7 g/dL 12.0-15.0 [facility] Monocytes/100 WBC (Bld) 5.8 % 0-10 [facility] Neutrophils (Bld) [#/Vol] 5.0 10*3/uL 2.0-7.7 [facility] Neutrophils/100 WBC (Bld) 55.4 % 47-70 [facility] Potassium [Moles/Vol] 4.2 mmol/L 3.5-5.1 [facility] Protein [Mass/Vol] 7.4 g/dL 6.4-8.2 [facility] Sodium [Moles/Vol] 140 mmol/L 136-145 [facility] WBC (Bld) [#/Vol] 9.1 10*3/uL 4.4-11.0 [facility] Determination of erythrocyte mean corpuscular volume (MCV)Ordered By: Mayito Rodarte on 12-10-2023 MCV (RBC) [Entitic vol] 92.0 fL 81-99 [facility] Erythrocyte distribution wid th ratioOrdered By: [facility]23 Erythrocyte distribution width (RBC) [Ratio] 12.5 % 11.6-14.6 [facility] Erythrocyte distribution wid th standard deviationOrdered By: Mayito Rodarte on 12-10-2023 Erythrocyte distribution width (RBC) [Entitic vol] 42.1 fL 35.1-43.9 [facility] Hematocrit Auto (Bld) [Volum e fraction]Or[facility]: [facility]-2023 Hematocrit (Bld) [Volume fraction] 44.9 % 37-47 [facility] Immature granulocytes/100 WB C Auto (Bld)Ordered By: Mayito Rodarte on 12-10-2023 Immature granulocytes/100 WBC (Bld) 0.300 % 0.0-0.9 [facility] Comment on above: IG% - Immature Granu locytes (promyelocytes, myelocytes and metamyelocytes) > 1% indicates that a LEFT SHIFT is Present. Laboratory - Chemistry and C hemistry - challengeOrdered By: Mayito Rodarte on 12-10-2023 Albumin/Globulin [Mass ratio] 1.0 {ratio} 0.9-2.4 [facility] ALP [Catalytic activity/Vol] 96 U/L 45-117 [facility] ALT [Catalytic activity/Vol] 22 U/L 13-56 [facility] CO2 [Moles/Vol] 29.0 mmol/L 21.0-32.0 [facility] Globulin (S) [Mass/Vol] 3.7 g/dL 2.2-4.2 [facility] Urea nitrogen/Creatinine [Mass ratio] 19.3 mg/mg 10-20 [facility] - Hematology and Cell countsOrdered By: Mayito Rodarte on 12-10-2023 MCH (RBC) [Entitic mass] 30.1 pg 27.0-32.0 [facility] MCHC (RBC) [Mass/Vol] 32.7 g/dL 32-36 [facility] Nucleated RBC/100 WBC (Bld) [Ratio] 0 % 0-5 [facility] Platelet mean volume (Bld) [Entitic vol] 10.6 fL 6.2-12.0 [facility] Platelets (Bld) [#/Vol] 261 10*3/uL 150-450 [facility] No Panel InformationOrdered By: Mayito Rodarte on 12-10-2023 Estimated GFR (MDRD) Amer 75 mL/min >60 [facility] Comment on above: GFR Calc Estimated GFR (MDRD) Non-Af Amer 62 mL/min >60 [facility] Comment on above: Non- GFR Calc Vitamin D 25-Hydroxy 32.5 ng/mL [facility] Comment on above: Vitamin D 25(OH) Sta tus Range Deficiency <20 ng/mL (50nmol/L) Insufficiency 20 - 30 ng/mL (50 - 75 nmol/L) Sufficiency 30 - 100 ng/mL (75 - 250 nmol/L) Toxicity >100 ng/mL (>250 nmol/L) RBC Auto (Bld) [#/Vol]Ordere d By: Mayito Rodarte on 12-10-2023 RBC (Bld) [#/Vol] 4.88 10*6/uL 4.2-5.4 [facility] Serum or plasma calcium param urement (mass/volume)Ordered By: Mayito Rodarte on 12-10-2023 Calcium [Mass/Vol] 9.1 mg/dL 8.5-10.1 [facility] Serum or plasma creatinine m easurement (mass/volume)Ordered By: Mayito Rodarte on 12-10-2023 Creatinine [Mass/Vol] 0.93 mg/dL 0.55-1.02 [facility] Comment on above: The validity of the calculated GFR & GFRAA in patients over 70 years has not been determined. Clinical correlation is essential. Serum or plasma thyroid stim ulating hormone (TSH) measurement (units/volume)Ordered By: Mayito Rodarte on 12-10-2023 TSH Qn 3.58 uIU/mL 0.358-3.74 [facility] Serum or plasma urea nitroge n measurement (mass/volume)Ordered By: Mayito Rodarte on 12-10-2023 Urea nitrogen [Mass/Vol] 18 mg/dL 7-18 [facility] Thin prep Papanicolaou smear with manual screeningOrdered By: Mayito Rodarte on 12-10-2023 Thin prep Papanicolaou smear with manual screening 3.7 g/dL 3.2-5.0 [facility] Thin prep Papanicolaou smear with manual screening 18 U/L 15-37 [facility] Thin prep Papanicolaou smear with manual screening 5 5-15 [facility] Absolute lymphocyte countOrd ered By: Albert Odonnell on 09-17-2023 Lymphocytes Auto (Unsp spec) [#/Vol] 3.40 10*3/uL 0.83-4.51 [facility] Basophil percentageOrdered B y: Albert Odonnell on 09-17-2023 Basophils/100 WBC (Bld) 0.7 % 0-1 [facility] Bilirubin [Mass/Vol] 0.40 mg/dL 0.20-1.00 [facility] Comment on above: For patients on eltr ombopag therapy, use of Dimension Mertzon TBIL is not recommended. Chloride [Moles/Vol] 104 mmol/L 98-107 [facility] Eosinophils/100 WBC (Bld) 2.1 % 0-5 [facility] Glucose [Mass/Vol] 111 mg/dL 74-106 [facility] Comment on above: Fasting Glucose resu lt from 100 to 125 mg/dL suggests IMPAIRED HOMEOSTASIS per A.D.A. criteria. Neutrophils (Bld) [#/Vol] 5.0 10*3/uL 2.0-7.7 [facility] Neutrophils/100 WBC (Bld) 53.8 % 47-70 [facility] Potassium [Moles/Vol] 3.9 mmol/L 3.5-5.1 [facility] Protein [Mass/Vol] 7.5 g/dL 6.4-8.2 [facility] Sodium [Moles/Vol] 137 mmol/L 136-145 [facility] WBC (Bld) [#/Vol] 9.2 10*3/uL 4.4-11.0 [facility] Blood erythrocytes count (nu mber/volume)Ordered By: Albert Odonnell on 09-17-2023 RBC (Bld) [#/Vol] 4.85 10*6/uL 4.2-5.4 [facility] Blood hemoglobin measurement (mass/volume)Ordered By: Albert Odonnell on 09-17-2023 Hemoglobin (Bld) [Mass/Vol] 14.5 g/dL 12.0-15.0 [facility] Blood lymphocytes/100 leukoc ytesOrdered By: Albert Odonnell on 09-17-2023 Lymphocytes/100 WBC (Bld) 37.0 % 19-41 [facility] Blood monocytes/100 leukocyt esOrdered By: Albert Odonnell on 09-17-2023 Monocytes/100 WBC (Bld) 6.2 % 0-10 [facility] Blood platelet mean volumeOr dered By: Albert Odonnell on 09-17-2023 Platelet mean volume (Bld) [Entitic vol] 10.7 fL 6.2-12.0 [facility] Determination of erythrocyte mean corpuscular volume (MCV)Ordered By: Albert Odonnell on 09-17-2023 MCV (RBC) [Entitic vol] 92.6 fL 81-99 [facility] Hematocrit Auto (Bld) [Volum e fraction]Ordered By: Albert Odonnell on 09-17-2023 Hematocrit (Bld) [Volume fraction] 44.9 % 37-47 [facility] - Chemistry and C hemistry - challengeOrdered By: Albert Odonnell on 09-17-2023 ALP [Catalytic activity/Vol] 91 U/L 45-117 [facility] ALT [Catalytic activity/Vol] 22 U/L 13-56 [facility] CO2 [Moles/Vol] 27.0 mmol/L 21.0-32.0 [facility] Free T4 [Mass/Vol] 1.06 ng/dL 0.76-1.46 [facility] Globulin (S) [Mass/Vol] 3.8 g/dL 2.2-4.2 [facility] Urea nitrogen/Creatinine [Mass ratio] 19.6 mg/mg 10-20 [facility] - Hematology and Cell countsOrdered By: Albert Odonnell on 09-17-2023 Erythrocyte distribution width (RBC) [Entitic vol] 42.5 fL 35.1-43.9 [facility] Erythrocyte distribution width (RBC) [Ratio] 12.5 % 11.6-14.6 [facility] Immature granulocytes/100 WBC (Bld) 0.200 % 0.0-0.9 [facility] Comment on above: IG% - Immature Granu locytes (promyelocytes, myelocytes and metamyelocytes) > 1% indicates that a LEFT SHIFT is Present. MCH (RBC) [Entitic mass] 29.9 pg 27.0-32.0 [facility] Nucleated RBC/100 WBC (Bld) [Ratio] 0 % 0-5 [facility] MCHC Auto (RBC) [Mass/Vol]Or dered By: Albert Odonnell on 09-17-2023 MCHC (RBC) [Mass/Vol] 32.3 g/dL 32-36 [facility] No Panel InformationOrdered By: Albert Odonnell on 09-17-2023 Estimated GFR (MDRD) Amer 77 mL/min >60 [facility] Comment on above: GFR Calc Estimated GFR (MDRD) Non-Af Amer 63 mL/min >60 [facility] Comment on above: Non- GFR Calc Follicle Stimulating Hormone 57.8 mIU/mL [facility] Comment on above: NORMAL REFERENCE RAN GES FEMALE FOLLICULAR 2.3 - 12.6 mIU/mL MID-CYCLE PEAK 5.2 - 17.5 mIU/mL LUTEAL 1.7 - 12.9 mIU/mL POST-MENOPAUSAL ON MHT 5.9 - 72.8 mIU/mL NOT ON MHT 12.7 - 132.2 mlU/mL MALE 0.7 - 10.8 mIU/mL Free Triiodothyronine (T3) pg/dL 2.3 pg/mL 2.18-3.98 [facility] Luteinizing Hormone 22.2 mIU/mL [facility] Comment on above: NORMAL REFERENCE RAN GES FEMALE FOLLICULAR 1.9 - 26.2 mIU/mL MID-CYCLE PEAK 22.8 - 76.1 mIU/mL LUTEAL 0.6 - 16.6 mIU/mL POST-MENOPAUSAL ON MHT 1.1 - 52.4 mIU/mL NOT ON MHT 8.6 - 61.8 mIU/mL MALE 1.2 - 10.6 mIU/mL Thyroid Stimulating Hormone (TSH) 4.42 uIU/mL 0.358-3.74 [facility] Vitamin D 25-Hydroxy 52.6 ng/mL [facility] Comment on above: Vitamin D 25(OH) Sta tus Range Deficiency <20 ng/mL (50nmol/L) Insufficiency 20 - 30 ng/mL (50 - 75 nmol/L) Sufficiency 30 - 100 ng/mL (75 - 250 nmol/L) Toxicity >100 ng/mL (>250 nmol/L) Platelets bldOrdered By: Geraldo Odonnell on 09-17-2023 Platelets (Bld) [#/Vol] 275 10*3/uL 150-450 [facility] Serum or plasma albumin param urement (mass/volume)Ordered By: Albert Odonnell on 09-17-2023 Albumin [Mass/Vol] 3.7 g/dL 3.2-5.0 [facility] Serum or plasma albumin/glob ulin mass ratioOrdered By: Albert Odonnell on 09-17-2023 Albumin/Globulin [Mass ratio] 1.0 {ratio} 0.9-2.4 [facility] Serum or plasma calcium param urement (mass/volume)Ordered By: Albert Odonnell on 09-17-2023 Calcium [Mass/Vol] 8.6 mg/dL 8.5-10.1 [facility] Serum or plasma cortisol manjit surement (mass/volume)Ordered By: Albert Odonnell on 09-17-2023 Cortisol [Mass/Vol] 6.10 ug/dL 3.44-22.45 [facility] Comment on above: Adult (AM) 5.27 - 22 .45 ug/dL Adult (PM) 3.44 - 16.76 ug/dLPlease note revised CORTISOL reference range effective 2019. Serum or plasma creatinine m easurement (mass/volume)Ordered By: Albert Odonnell on 09-17-2023 Creatinine [Mass/Vol] 0.92 mg/dL 0.55-1.02 [facility] Comment on above: The validity of the calculated GFR & GFRAA in patients over 70 years has not been determined. Clinical correlation is essential. Serum or plasma prolactin me asurement (mass/volume)Ordered By: Albert Odonnell on 09-17-2023 Prolactin [Mass/Vol] 6.7 ng/mL [facility] Comment on above: NORMAL REFERENCE RAN GES FEMALE NON- 2.2 - 30.3 ng/mL 8.1 - 347.6 ng/mL POST-MENOPAUSAL 0.7 - 31.5 ng/mL MALE 2.5 - 17.4 ng/mL Serum or plasma urea nitroge n measurement (mass/volume)Ordered By: Albert Odonnell on 09-17-2023 Urea nitrogen [Mass/Vol] 18 mg/dL 7-18 [facility] Thin prep Papanicolaou smear with manual screeningOrdered By: Albert Odonnell on 09-17-2023 Thin prep Papanicolaou smear with manual screening 16 U/L 15-37 [facility] Thin prep Papanicolaou smear with manual screening 6 5-15 [facility] No Panel InformationOrdered By: Mayito Rodarte on 04-23-2023 Thyroid Stimulating Hormone (TSH) 4.91 uIU/mL 0.358-3.74 [facility] BD BONE DENSITY DEXA AXIAL S Irene 03-10-2023 BD BONE DENSITY DEXA AXIAL SKELETON ORIGINAL EXAMINATION: BONE DENSITOMETRY 3 3:08 pm TECHNIQUE: Dual energy bone densitometry [...] Sign Date: 03/10/2023 3:37:41 PM Ordering Provider: MCKENZIE [facility] ([place]) Absolute lymphocyte countOrd ered By: Dr. Rodarte on 03-08-2023 Lymphocytes Auto (Unsp spec) [#/Vol] 2.50 10*3/uL 0.83-4.51 [facility] Basophil percentageOrdered B y: Dr. Rodarte on 03-08-2023 Basophils/100 WBC (Bld) 0.8 % 0-1 [facility] Bilirubin [Mass/Vol] 0.30 mg/dL 0.20-1.00 [facility] Comment on above: For patients on eltr ombopag therapy, use of Dimension Mertzon TBIL is not recommended. Chloride [Moles/Vol] 107 mmol/L 98-107 [facility] Eosinophils/100 WBC (Bld) 1.9 % 0-5 [facility] Glucose [Mass/Vol] 120 mg/dL 74-106 [facility] Comment on above: Fasting Glucose resu lt from 100 to 125 mg/dL suggests IMPAIRED HOMEOSTASIS per A.D.A. criteria. Neutrophils (Bld) [#/Vol] 4.3 10*3/uL 2.0-7.7 [facility] Neutrophils/100 WBC (Bld) 57.1 % 47-70 [facility] Potassium [Moles/Vol] 3.9 mmol/L 3.5-5.1 [facility] Protein [Mass/Vol] 7.4 g/dL 6.4-8.2 [facility] Sodium [Moles/Vol] 138 mmol/L 136-145 [facility] WBC (Bld) [#/Vol] 7.6 10*3/uL 4.4-11.0 [facility] Blood erythrocytes count (nu mber/volume)Ordered By: Dr. Rodarte on 03-08-2023 RBC (Bld) [#/Vol] 4.84 10*6/uL 4.2-5.4 [facility] Blood hemoglobin measurement (mass/volume)Ordered By: Dr. Rodarte on 03-08-2023 Hemoglobin (Bld) [Mass/Vol] 14.7 g/dL 12.0-15.0 [facility] Blood lymphocytes/100 leukoc ytesOrdered By: Dr. Rodarte on 03-08-2023 Lymphocytes/100 WBC (Bld) 33.1 % 19-41 [facility] Blood monocytes/100 leukocyt esOrdered By: Dr. Rodarte on 03-08-2023 Monocytes/100 WBC (Bld) 6.8 % 0-10 [facility] Blood platelet mean volumeOr dered By: Dr. Rodarte on 03-08-2023 Platelet mean volume (Bld) [Entitic vol] 10.6 fL 6.2-12.0 [facility] Determination of erythrocyte mean corpuscular volume (MCV)Ordered By: Dr. Rodarte on 03-08-2023 MCV (RBC) [Entitic vol] 92.1 fL 81-99 [facility] Hematocrit Auto (Bld) [Volum e fraction]Ordered By: Dr. Rodarte on 03-08-2023 Hematocrit (Bld) [Volume fraction] 44.6 % 37-47 [facility] Laboratory - Chemistry and C hemistry - challengeOrdered By: Dr. Rodarte on 03-08-2023 ALP [Catalytic activity/Vol] 106 U/L 45-117 [facility] ALT [Catalytic activity/Vol] 38 U/L 13-56 [facility] CO2 [Moles/Vol] 23.0 mmol/L 21.0-32.0 [facility] Globulin (S) [Mass/Vol] 3.8 g/dL 2.2-4.2 [facility] Urea nitrogen/Creatinine [Mass ratio] 26.4 mg/mg 10-20 [facility] Laboratory - Hematology and Cell countsOrdered By: Dr. Rodarte on 03-08-2023 Erythrocyte distribution width (RBC) [Entitic vol] 42.0 fL 35.1-43.9 [facility] Erythrocyte distribution width (RBC) [Ratio] 12.4 % 11.6-14.6 [facility] Immature granulocytes/100 WBC (Bld) 0.300 % 0.0-0.9 [facility] Comment on above: IG% - Immature Granu locytes (promyelocytes, myelocytes and metamyelocytes) > 1% indicates that a LEFT SHIFT is Present. MCH (RBC) [Entitic mass] 30.4 pg 27.0-32.0 [facility] Nucleated RBC/100 WBC (Bld) [Ratio] 0 % 0-5 [facility] MCHC Auto (RBC) [Mass/Vol]Or dered By: Dr. Rodarte on 03-08-2023 MCHC (RBC) [Mass/Vol] 33.0 g/dL 32-36 [facility] No Panel InformationOrdered By: Dr. Rodarte on 03-08-2023 Estimated GFR (MDRD) Amer 108 mL/min >60 [facility] Comment on above: GFR Calc Estimated GFR (MDRD) Non-Af Amer 89 mL/min >60 [facility] Comment on above: Non- GFR Calc Hepatitis C Antibody Non-Reactive Nonreactive [facility] Comment on above: Non Reactive: < 0.8 Equivocal: >/= 0.8 to < 1.0 Reactive: >/= 1.0The CDC recommends that a reactive/equivocal HCV antibody result be followed up by the HCV Nucleic Acid Amplificationtest (360126) Thyroid Stimulating Hormone (TSH) 5.53 uIU/mL 0.358-3.74 [facility] Vitamin B12 Level > 2000 pg/mL 211-911 [facility] Platelets bldOrdered By: Dr. Rodarte on 03-08-2023 Platelets (Bld) [#/Vol] 246 10*3/uL 150-450 [facility] Serum or plasma albumin param urement (mass/volume)Ordered By: Dr. Rodarte on 03-08-2023 Albumin [Mass/Vol] 3.6 g/dL 3.2-5.0 [facility] Serum or plasma albumin/glob ulin mass ratioOrdered By: Dr. Rodarte on 03-08-2023 Albumin/Globulin [Mass ratio] 0.9 {ratio} 0.9-2.4 [facility] Serum or plasma calcium param urement (mass/volume)Ordered By: Dr. Rodarte on 03-08-2023 Calcium [Mass/Vol] 8.8 mg/dL 8.5-10.1 [facility] Serum or plasma creatinine m easurement (mass/volume)Ordered By: Dr. Rodarte on 03-08-2023 Creatinine [Mass/Vol] 0.68 mg/dL 0.55-1.02 [facility] Comment on above: The validity of the calculated GFR & GFRAA in patients over 70 years has not been determined. Clinical correlation is essential. Serum or plasma folate measu rement (mass/volume)Ordered By: Dr. Rodarte on 03-08-2023 Folate [Mass/Vol] 27.80 ng/mL 3.1-55.4 [facility] Serum or plasma urea nitroge n measurement (mass/volume)Ordered By: Dr. Rodarte on 03-08-2023 Urea nitrogen [Mass/Vol] 18 mg/dL 7-18 [facility] Thin prep Papanicolaou smear with manual screeningOrdered By: Dr. Rodarte on 03-08-2023 Thin prep Papanicolaou smear with manual screening 29 U/L 15-37 [facility] Thin prep Papanicolaou smear with manual screening 8 5-15 [facility] .Auto Diffon 06-26-2022 Basophil, Absolute 0.1 10 3/mcL Normal 0.0-0.3 [facility] ([place]) Comment on above: Performed By: #### L IPID, CMP, A1C, GFR #### [address] [address] Basophils/100 WBC (Bld) 0.6 % Normal 0.0-2.5 [facility] ([place]) Comment on above: Performed By: #### L IPID, CMP, A1C, GFR #### [address] [address] Eosinophil, Absolute 0.1 10 3/mcL Normal 0.0-0.7 [facility] ([place]) Comment on above: Performed By: #### L IPID, CMP, A1C, GFR #### [address] [address] Eosinophils/100 WBC (Bld) 0.7 % Normal 0.0-6.0 [facility] ([place]) Comment on above: Performed By: #### L IPID, CMP, A1C, GFR #### [address] [address] Lymphocyte, Absolute 2.6 10 3/mcL Normal 0.9-4.3 [facility] ([place]) Comment on above: Performed By: #### L IPID, CMP, A1C, GFR #### [address] [address] Lymphocytes/100 WBC (Bld) 29.9 % Normal 20.0-40.0 [facility] ([place]) Comment on above: Performed By: #### L IPID, CMP, A1C, GFR #### [address] [address] Monocyte, Absolute 0.5 10 3/mcL Normal 0.1-1.4 [facility] ([place]) Comment on above: Performed By: #### L IPID, CMP, A1C, GFR #### [address] [address] Monocytes/100 WBC (Bld) 5.1 % Normal 2.0-13.0 [facility] ([place]) Comment on above: Performed By: #### L IPID, CMP, A1C, GFR #### [address] [address] Neutrophils/100 WBC (Bld) 63.7 % Normal 50.0-75.0 [facility] ([place]) Comment on above: Performed By: #### L IPID, CMP, A1C, GFR #### [address] [address] .GFRon 06-26-2022 GFR >60 Normal [facility] ([place]) Comment on above: Result Comment: GFR Population mean for , Non- Americans Ages 20-29 = 116 mL/min/1.73 sq.m. Ages 30-39 = 107 mL/min/1.73 sq.m. Ages 40-49 = 99 mL/min/1.73 sq.m. Ages 50-59 = 93 mL/min/1.73 sq.m. Ages 60-69 = 85 mL/min/1.73 sq.m. Ages 70+ = 75 mL/min/1.73 sq.m. Chronic Kidney Disease: Less than 60 mL/min/1.73 square meters End Stage Renal Disease: Less than 15 mL/min/1.73 square meters Performed By: #### L IPID, CMP, A1C, GFR #### [address] [address] GFR Non- >60 Normal [facility] ([place]) Comment on above: Result Comment: GFR Population mean for , Non- Americans Ages 20-29 = 116 mL/min/1.73 sq.m. Ages 30-39 = 107 mL/min/1.73 sq.m. Ages 40-49 = 99 mL/min/1.73 sq.m. Ages 50-59 = 93 mL/min/1.73 sq.m. Ages 60-69 = 85 mL/min/1.73 sq.m. Ages 70+ = 75 mL/min/1.73 sq.m. Chronic Kidney Disease: Less than 60 mL/min/1.73 square meters End Stage Renal Disease: Less than 15 mL/min/1.73 square meters Performed By: #### L IPID, CMP, A1C, GFR #### [address] [address] .NEUABSon 06-26-2022 Neutrophil, Absolute 5.6 10 3/mcL Normal 2.3-8.1 [facility] ([place]) Comment on above: Performed By: #### L IPID, CMP, A1C, GFR #### [place] [address] A1Con 06-26-2022 HbA1c (Bld) [Mass fraction] 5.9 % Normal 4.0-6.0 [facility] ([place]) Comment on above: Performed By: #### L IPID, CMP, A1C, GFR #### [place] [address] CBCon 06-26-2022 Erythrocyte distribution width (RBC) [Ratio] 12.8 % Normal 11.5-15.5 [facility] ([place]) Comment on above: Performed By: #### L IPID, CMP, A1C, GFR #### [place] [address] Hematocrit (Bld) [Volume fraction] 44.9 % Normal 34.0-46.0 [facility] ([place]) Comment on above: Performed By: #### L IPID, CMP, A1C, GFR #### [place] [address] Hgb 14.8 G/dL Normal 12.0-16.0 [facility] ([place]) Comment on above: Performed By: #### L IPID, CMP, A1C, GFR #### [place] [address] MCH (RBC) [Entitic mass] 29.8 pg Normal 27.0-33.0 [facility] ([place]) Comment on above: Performed By: #### L IPID, CMP, A1C, GFR #### [place] [address] MCHC 32.9 G/dL Normal 32.0-36.0 [facility] ([place]) Comment on above: Performed By: #### L IPID, CMP, A1C, GFR #### [place] [address] MCV (RBC) [Entitic vol] 90.6 fL Normal 80.0-99.0 [facility] ([place]) Comment on above: Performed By: #### L IPID, CMP, A1C, GFR #### [address] [address] Platelet 258 10 3/mcL Normal 150-450 [facility] ([place]) Comment on above: Performed By: #### L IPID, CMP, A1C, GFR #### [address] [address] Platelet mean volume (Bld) [Entitic vol] 9.1 fL Normal 6.6-10.5 [facility] ([place] Comment on above: Performed By: #### L IPID, CMP, A1C, GFR #### [place] [id number] RBC 4.96 10 6/mcL Normal 4.10-5.30 [facility] ([place]) Comment on above: Performed By: #### L IPID, CMP, A1C, GFR #### [place] [id number] WBC 8.8 10 3/mcL Normal 4.5-10.8 [facility] ([place] Comment on above: Performed By: #### L IPID, CMP, A1C, GFR #### [place] [address] CMPon 06-26-2022 Albumin Level 4.2 G/dL Normal 3.2-4.8 [facility] ([place]) Comment on above: Performed By: #### L IPID, CMP, A1C, GFR #### [place] [address] Albumin/Globulin [Mass ratio] 1.4 {ratio} Normal 0.9-1.6 [facility] ([place]) Comment on above: Performed By: #### L IPID, CMP, A1C, GFR #### [place] [id number] ALP [Catalytic activity/Vol] 99 U/L Normal 38-126 [facility] ([place]) Comment on above: Performed By: #### L IPID, CMP, A1C, GFR #### [place] [id number] ALT [Catalytic activity/Vol] 32 U/L Normal 10-49 [facility] ([place]) Comment on above: Performed By: #### L IPID, CMP, A1C, GFR #### [address] [address] AST [Catalytic activity/Vol] 39 U/L High 8-34 [facility] ([place]) Comment on above: Performed By: #### L IPID, CMP, A1C, GFR #### [address] [address] Bili Total 0.70 mg/dL Normal 0.20-1.20 [facility] ([place]) Comment on above: Result Comment: Use of this assay is not recommended for patients undergoing treatment with eltrombopag due to the potential for falsely elevated results. Performed By: #### L IPID, CMP, A1C, GFR #### [address] [address] BUN/Creatinine Ratio 23.9 ratio High 10.0-22.0 [facility] ([place]) Comment on above: Performed By: #### L IPID, CMP, A1C, GFR #### [address] [address] Calcium [Mass/Vol] 10.1 mg/dL Normal 8.7-10.4 [facility] ([place]) Comment on above: Performed By: #### L IPID, CMP, A1C, GFR #### [address] [address] Chloride [Moles/Vol] 103 mmol/L Normal 98-110 [facility] ([place]) Comment on above: Performed By: #### L IPID, CMP, A1C, GFR #### [address] [address] CO2 [Moles/Vol] 28 mmol/L Normal 22-32 [facility] ([place]) Comment on above: Performed By: #### L IPID, CMP, A1C, GFR #### [address] [address] Creatinine [Mass/Vol] 0.67 mg/dL Normal 0.50-1.20 [facility] ([place]) Comment on above: Performed By: #### L IPID, CMP, A1C, GFR #### [address] [address] Electrolyte Balance 6.0 mEq/L Normal 4.0-15.0 [facility] ([place]) Comment on above: Performed By: #### L IPID, CMP, A1C, GFR #### [address] [address] Globulin 3.1 G/dL Normal 1.5-3.8 [facility] ([place]) Comment on above: Performed By: #### L IPID, CMP, A1C, GFR #### [address] [address] Glucose [Mass/Vol] 81 mg/dL Low 82-115 [facility] ([place]) Comment on above: Performed By: #### L IPID, CMP, A1C, GFR #### [address] [address] Potassium [Moles/Vol] 4.9 mmol/L Normal 3.5-5.0 [facility] ([place]) Comment on above: Result Comment: Spec imen slightly hemolyzed. Performed By: #### L IPID, CMP, A1C, GFR #### [address] [address] Sodium [Moles/Vol] 137 mmol/L Normal 136-145 [facility] ([place]) Comment on above: Performed By: #### L IPID, CMP, A1C, GFR #### [address] [address] Total Protein 7.3 G/dL Normal 5.7-8.2 [facility] ([place]) Comment on above: Result Comment: No te - New Reference Range in effect 20 Performed By: #### L IPID, CMP, A1C, GFR #### [address] [address] Urea nitrogen [Mass/Vol] 16.0 mg/dL Normal 8.0-22.0 [facility] ([place]) Comment on above: Performed By: #### L IPID, CMP, A1C, GFR #### [address] [place], [place] [address] LIPIDon 06-26-2022 Cholesterol [Mass/Vol] 163 mg/dL Normal 50-199 [facility] ([place]) Comment on above: Result Comment: Chol esterol Reference Interval: Less than 200 Desirable 200-239 Borderline high risk 240 and above High risk Performed By: #### L IPID, CMP, A1C, GFR #### [address] [address] Cholesterol in HDL [Mass/Vol] 59 mg/dL Normal 40-59 [facility] ([place]) Comment on above: Performed By: #### L IPID, CMP, A1C, GFR #### [address] [address] Cholesterol in LDL [Mass/Vol] 88 mg/dL Normal 0-129 [facility] ([place]) Comment on above: Performed By: #### L IPID, CMP, A1C, GFR #### [address] [address] Triglyceride [Mass/Vol] 82 mg/dL Normal 3-149 [facility] ([place]) Comment on above: Performed By: #### L IPID, CMP, A1C, GFR #### [address] [address] LABORATORYOrdered By: Robert Rodriguez on 02-23-2022 Calcium [Mass/Vol] 9.6 mg/dL Invalid Interpretation Code 8.4 - 10.2 mg/dL AO ADM SS Chloride [Moles/Vol] 102 mmol/L Invalid Interpretation Code 98 - 107 mmol/L AO ADM [facility] CO2 [Moles/Vol] 26 mmol/L Invalid Interpretation Code 23 - 31 mmol/L AO ADM SS Creatinine [Mass/Vol] 0.98 mg/dL Invalid Interpretation Code 0.55 - 1.02 mg/dL AO ADM SS Electrolyte Balance 11.0 mEq/L Invalid Interpretation Code 4.0 - 15.0 mEq/L AO ADM SS Glucose [Mass/Vol] 135 mg/dL Invalid Interpretation Code 83 - 110 mg/dL AO ADM SS Potassium [Moles/Vol] 4.6 mmol/L Invalid Interpretation Code 3.5 - 5.1 mmol/L AO ADM SS Sodium [Moles/Vol] 139 mmol/L Invalid Interpretation Code 136 - 145 mmol/L AO ADM [facility] Urea nitrogen [Mass/Vol] 26 mg/dL Invalid Interpretation Code 7 - 18 mg/dL AO ADM SS Urea nitrogen/Creatinine [Mass ratio] 27 ratio Invalid Interpretation Code 7 - 27 ratio AO ADM SS LABORATORYOrdered By: SYSTEM SYSTEM on 02-23-2022 GFR 67 ml/min/1.73sqm Invalid Interpretation Code AO Chemistry S GFR Non- 55 ml/min/1.73sqm Invalid Interpretation Code AO Chemistry S LABORATORYOrdered By: Maggi Bowen on 02-23-2022 HbA1c (Bld) [Mass fraction] 6.1 % Invalid Interpretation Code 4.3 - 6.4 % AO ADM SS Vital Signs Date Time Vital Sign Value Performing Clinician Yun scott 02-17-2022 16:14-0400 Reason For Taking VItal Signs DR AMY TORRES MD [facility] 02-17-2022 14:34-0400 Body temperature 98.6 [degF] DR AMY TORRES MD [facility] 02-17-2022 14:34-0400 Diastolic blood pressure 93 mm[Hg] DR AMY TORRES MD [facility] 02-17-2022 14:34-0400 Heart rate 108 /min DR AMY TORRES MD [facility] 02-17-2022 14:34-0400 Respiratory rate 20 /min DR AMY TORRES MD [facility] 02-17-2022 14:34-0400 Systolic blood pressure 170 mm[Hg] DR AMY TORRES MD [facility] Encounters Encounter Date Encounter Type Care Provider Facility Start: 04-30-2025 End: 04-30-[address] Mayito Rodarte MD Work Phone: -Laboratory Specimen Start: 04-30-2025 End: 04-30-[address] Mayito Rodarte MD -Laboratory Specimen Work Phone: Start: 04-30-2025 End: 04-30-2025 ambulatory Mayito Rodarte Facility:[facility] Start: 04-27-2025 End: 04-27-[address] Mayito Rodarte MD Work Phone: -Laboratory Start: 04-27-2025 End: 04-27-[address] Mayito Rodarte MD -Laboratory Work Phone: Start: 04-27-2025 End: 04-27-2025 ambulatory [facility] Facility:[facility] Start: 10-17-2024 End: 10-17-[address] [facility] Facility:[facility] Start: 12-10-2023 End: 12-10-2023 ambulatory [facility] Work Phone: Start: 12-10-2023 End: 12-10-2023 Patient encounter procedure [facility]-Laboratory, Phy Office 3rd Flr Start: 09-17-2023 End: 09-17-2023 Patient encounter procedure [facility]-Laboratory, Phy Office 3rd Flr Start: 04-23-2023 End: 04-23-2023 ambulatory [facility] Work Phone: Start: 04-23-2023 End: 04-23-2023 Patient encounter procedure [facility]-Laboratory Work Phone: Start: 04-19-2023 End: 04-19-2023 ambulatory [facility] Work Phone: Start: 04-19-2023 End: 04-19-2023 Patient encounter procedure [facility] Start: 03-10-2023 End: 03-11-[address] MCKENZIE RODARTE MD Facility:B Start: 03-10-2023 End: 03-10-[address] MCKENZIE RODARTE MD [facility] Start: 03-08-2023 End: 03-08-2023 ambulatory [facility] Work Phone: Start: 03-08-2023 End: 03-08-2023 Patient encounter procedure [facility]-Laboratory, Phy Office 3rd Flr Start: 06-26-2022 End: 07-01-2022 ambulatory ALISSON Valdes ALISSA DO Facility:A Start: 03-19-2022 End: 09-08-2022 Physical therapy management NORRIS GUTIERREZ DO [facility] Start: 02-23-2022 End: 02-23-2022 Patient encounter procedure VITOR CLARK PA-C [facility] Start: 02-17-2022 End: 02-17-2022 Emergency department patient visit DR AMY TORRES MD [facility] Start: 09-30-2021 End: 09-30-2021 Patient encounter procedure ALISSON MAXWELL DO [facility] Procedures Date Procedure Procedure Detail Performing Clinician Start: 04-27-2025 Vitamin D, 25-hydrox y measurement Dr. Mayito Rodarte MD Work Phone: Comment on above: Vitamin D StatusDefi ciency: <20 ng/mL (50nmol/L)Insufficiency: 20-30 ng/mL (50-75 nmol/L)Sufficiency: 30-100 ng/mL (75-250 nmol/L)Toxicity: >100 ng/mL (>250 nmol/L) Start: 04-19-2023 CT of head without contrast Immunizations Immunization Date Immunization Notes Care Provider [facility] 09-10-2021 influenza, high dose seasonal, preservative-free; Translations: [Afluria PF Quadrivalent ] ALISSON MAXWELL DO [facility] 01-29-2021 SARS-CoV-2 (COVID-19 ) mRNA-1273 vaccine ALISSON MAXWELL DO [facility] 01-02-2021 SARS-CoV-2 (COVID-19 ) mRNA-1273 vaccine ALISSON MAXWELL DO [facility] Comment on above: Result Comment: 2020: [id number] 07-29-2020 Influenza vaccine, quadrivalent, adjuvanted; Translations: [Fluad Trivalent adjuvanted] ALISSON MAXWELL DO [facility] Payers Date Payer Category Payer Self-pay 2022 Private Health Insurance [facility] [id number] 1945 Unknown [id number] [id number] 1945 Unknown [id number] [id number] Medicare [id number] Unknown [id number] [id number] [id number] Unknown [id number] [id number] [id number] Unknown [id number] [id number] [id number] Social History Date Type Detail Facility Start: 07-24-2019 Never smoked t [facility] Sex Assigned At [facility] Start: 1945 Sex Assigned At Female [facility] Start: 08-13-2023 Tobacco smoking stat [facility] Unknown if ever smoked [facility] Start: 08-13-2023 [facility] Medical Equipment Procedure Code Equipment Code Equipment Origin al Text Equipment Identifier Dates Easy Touch Test Strip Start: 05-17-2020 See Instructions , EZ touch test strips. Use 1 strip daily. #50, # 1 packet(s), 11 Refill(s), Pharmacy: [facility], Diabetes, 157, cm, 09/10/21 8:37:00 EST, Height, 85.45, kg, 09/10/21 8:37:00 EST, Dosing Weight Start: 12-09-2021 Easy Touch Test Strip, See Instructions, test ONCE DAILY DIRECTED, # 50 strip, 11 Refill(s), Pharmacy: [facility], 167, cm, 03/27/20 7:51:00 EDT, Height, 84.4, kg, 03/27/20 7:51:00 EDT, Dosing Weight Start: 05-17-2020 See Instructions , EZ touch test strips. Use 1 strip daily. #50, # 1 packet(s), 11 Refill(s), Pharmacy: [facility], Diabetes, 157, cm, 09/10/21 8:37:00 EST, Height, 85.45, kg, 09/10/21 8:37:00 EST, Dosing Weight Start: 12-09-2021 Easy Touch Test Strip, See Instructions, test ONCE DAILY DIRECTED, # 50 strip, 11 Refill(s), Pharmacy: [facility], 167, cm, 03/27/20 7:51:00 EDT, Height, 84.4, kg, 03/27/20 7:51:00 EDT, Dosing Weight Start: 05-17-2020 See Instructions , EZ touch test strips. Use 1 strip daily. #50, # 1 packet(s), 11 Refill(s), Pharmacy: [facility], Diabetes, 157, cm, 09/10/21 8:37:00 EST, Height, 85.45, kg, 09/10/21 8:37:00 EST, Dosing Weight Start: 12-09-2021 Easy Touch Test Strip, See Instructions, test ONCE DAILY DIRECTED, # 50 strip, 11 Refill(s), Pharmacy: [facility], 167, cm, 03/27/20 7:51:00 EDT, Height, 84.4, kg, 03/27/20 7:51:00 EDT, Dosing Weight Start: 05-17-2020 See Instructions , EZ touch test strips. Use 1 strip daily. #50, # 1 packet(s), 11 Refill(s), Pharmacy: [facility], Diabetes, 157, cm, 09/10/21 8:37:00 EST, Height, 85.45, kg, 09/10/21 8:37:00 EST, Dosing Weight Start: 12-09-2021 Easy Touch Test Strip, See Instructions, test ONCE DAILY DIRECTED, # 50 strip, 11 Refill(s), Pharmacy: [facility], 167, cm, 03/27/20 7:51:00 EDT, Height, 84.4, kg, 03/27/20 7:51:00 EDT, Dosing Weight Start: 05-17-2020 Functional Status Date Assessment Result Facility 02-17-2022 Functional Status Radha Henry ngo [facility] Mental Status Date Assessment Result Facility 02-17-2022 Mental Status Radhakendrick Vick [facility] 02-17-2022 Mental Status [facility] Clinical Notes 02-17-2022 to 03-10-2023 Radiology Note Date & Type Note Facility 03-10-2023 Note ORIGINAL EXAMINATION: BONE DENSITOMETRY03/10/2023 3:08 [...] Sign Date: 03/10/2023 3:37:41 PM Ordering Provider: [facility] 03-10-2023 Note ORIGINAL EXAMINATION: BONE DENSITOMETRY03/10/2023 [...] Sign Date: 03/10/2023 3:37:41 PM Ordering Provider: [facility] 02-17-2022 Hospital Discharge instructions Patient Education 02/17/2022 15:41:58 Fracture, Wrist, [...] wet, you can dry it with a chairman president and chief executive officer on a cool setting. You may use [...] around cast becomes red, swollen, or irritated [id number] [employer]. [address] [place] [address]. All rights reserved. This information is not intended as a substitute for professional medical care. Always follow your healthcare professional's instructions. Follow Up Care 02/17/2022 14:24:34 With:VARGHESE CURTIS MD Address: [address] [place] [address] [facility] [place] [address]- [phone] When:2-4 days [facility] Evaluation + Plan note Future Appointments Appointment Date:12/15/2021 09:00:00 AM Scheduled Provider:ALISSON MAXWELL DO Location:[facility] Appointment Type: OV Future Scheduled TestsBD Bone Density DEXA Axial Skeleton 06/10/21 [facility] Evaluation + Plan note Future Appointments Appointment Date:03/19/2022 08:30:00 AM Scheduled Provider:ALISSON MAXWELL DO Location:[facility] Appointment Type:PC OV [facility] Evaluation + Plan note Future Appointments Appointment Date:03/19/2022 08:30:00 AM Scheduled Provider:ALISSON MAXWELL DO Location:[facility] Appointment Type:PC OV Diagnostic Tests PendingComplete Blood Count 02/23/22.Auto Differential 02/23/22.Neutro Absolute 02/23/22 [facility] Evaluation + Plan note Future Appointments Appointment Date:10/02/2022 08:30:00 AM Scheduled Provider:ALISSON MAXWELL DO Location: [facility] Appointment Type:PC Wellness Medicare [facility] Evaluation + Plan note Future Appointments Appointment Date:04/02/2023 08:00:00 AM Scheduled Provider:ALISSON MAXWELL DO Location: [facility] Appointment Type:PC OV [facility] Evaluation note No assessment inform ation available [facility] Work Phone: Hospital course Narrative No data available for this section [facility] Hospital Discharge instructions No data available for this section [facility] Progress note No data available for this section [facility] Reason for referral (narrative) No reason for referral information available [facility] Work Phone: Summary Purpose Family History No Family History Records FoundNo Family History Records Found Advance Directives No Advanced Directives Records FoundNo Advanced Directives Records Found Chief Complaint and Reason for Visit Chief Complaint ALZHEIMER'S DISEASE, CANCER SCREENING Additional Source Comments Care Team (unrecognized sect ion and content) Team Status: Inactive Member Role Status Dates Dr. Mayito Rodarte MD Attending Provider Active Team Status: Active Member Role Status Dates Dr. Mayito Rodarte MD Primary Care Provider Active Team Status: Inactive Member Role Status Dates Dr. Mayito Rodarte MD Primary Care Provi melissa, Attending Provider, Referring Provider Active Team Status: Inactive Member Role Status Dates Dr. Mayito Rodarte MD Primary Care Provider, Attending Provider Active Team Status: Active Member Role/Relationship Status Dates Dr. Mayito Rodarte MD Primary Care Provider Active Team Status: Inactive Member Role/Relationship Status Dates Dr. Mayito Rodarte MD Primary Care Provider Active Start: April 27, 2025 End: April 27, 2025 Dr. Mayito Rodarte MD Attending Provider Active Start: April 27, 2025 End: April 27, 2025 Dr. Mayito Rodarte MD Referring Provider Active Start: April 27, 2025 End: April 27, 2025 Team Status: Active Member Role/Relationship Status Dates Dr. Mayito Rodarte MD Primary Care Provider Active Start: April 30, 2025 Dr. Mayito Rodarte MD Attending Provider Active Start: April 30, 2025 Dr. Mayito Rodarte MD Referring Provider Active Start: April 30, 2025 Team Status: Inactive Member Role/Relationship Status Dates Dr. Mayito Rodarte MD Primary Care Provider Active Start: April 30, 2025 End: April 30, 2025 Dr. Mayito Rodarte MD Attending Provider Active Start: April 30, 2025 End: April 30, 2025 Dr. Mayito Rodarte MD Referring Provider Active Start: April 30, 2025 End: April 30, 2025 Care Team (unrecognized sect ion and content) Care Team Personnel Name: ALISSON MAXWELL DO Position: P4 Physician - Primary Care Member Role: Primary Care Physician Address: Address: [address] [place] [address] Family Medicine [address] Care Team Related Persons Name: BEAU MADELAINE Goals (unrecognized section and content) Goals may be documented in a n alternate section INFORMATION SOURCE (unrecogn ized section and content) DATE CREATED AUTHOR 04/10/2023 [facility] ([place]) DATE CREATED AUTHOR AUTHOR'S ORGANIZ ATION 05/03/2025 [facility] FOR RECORDS PERTAINING TO PATIENTS WHO ARE [...] BE BASED ON THE PRIMARY CLINICAL RECORDS. [employer] provides no warranty or guarantee of the accuracy or completeness of information in this document.
[2025-10-16 23:01] LABS: Xtra Tube Kwok EXTRA TUBE
== END | disposition home or self-care (01) ==
LOC: POLAB3 15:00
PROVIDERS: PCP Family Medicine Geriatric Medicine; Visit Provider Family Medicine Geriatric Medicine
DX: E03.9 Hypothyroidism, unspecified (principal); E55.9 Vitamin D deficiency, unspecified; R53.83 Other fatigue; R33.9 Retention of urine, unspecified
CPT/HCPCS: 36415; 80053; 82306; 84443; 85025; 87086; 87088